=== PATIENT | male | born 1940 | race Caucasian/White ===

== ENCOUNTER 2018-06-08 22:55 | Inpatient (IN) | payer MEDICARE, MEDICAID ==
[~2018-06-08] VITALS: Ht 160 cm; Wt 115.9 kg
[2018-06-08] MEDS ORDERED: acetaminophen 325mg tablet PO ONE (23:10)
[2018-06-08] MEDS ORDERED: MAGN400T6 PO (23:22)
[2018-06-08] MEDS ORDERED: AMLO2.5T2 PO (23:22)
[2018-06-08] MEDS ORDERED: LOSA25TA96 PO (23:22)
[2018-06-08] MEDS ORDERED: ERGO400C (23:22)
[2018-06-08] MEDS ORDERED: LANTUS SQ (23:22)
[2018-06-08] MEDS ORDERED: ATOR10TA87 PO (23:22)
[2018-06-08 23:39] LABS: HEMATOCRIT 39.8 % (42.0-52.0); HEMOGLOBIN 13.5 g/dl (14.0-17.9); MEAN CORPUSCULAR HEMOGLOBIN 31.1 PG (27.0-31.0); MEAN CORPUSCULAR HGB CONC 33.9 % (33.0-36.5); MEAN CORPUSCULAR VOLUME 91.7 FL (78-98); RED BLOOD COUNT 4.34 X10'6 (4.70-6.10); WHITE BLOOD COUNT 22.5 X10'3 (4.5-11.0)
[2018-06-08 23:40] LABS: BASOPHILS # (AUTO) 0.3 X10'3 (0-0.2); BASOPHILS % (AUTO) 1.4 % (0-1); EOSINOPHILS % (AUTO) 0 % (0-6); LYMPHOCYTES # (AUTO) 0.5 X10'3 (1.1-4.8); LYMPHOCYTES % (AUTO) 2.4 % (21-51); MEAN PLATELET VOLUME 9.4 FL (7.4-10.4); MONOCYTES # (AUTO) 0.5 X10'3 (0-0.9); MONOCYTES % (AUTO) 2.2 % (2-12); NEUTROPHILS # (AUTO) 21.2 X10'3 (1.8-7.7); PLATELET COUNT 201 X10'3 (140-440); RED CELL DISTRIBUTION WIDTH 13.7 % (11.5-14.5)
[2018-06-08 23:44] LABS: INR 1.2 INR; PARTIAL THROMBOPLASTIN TIME 36 SECONDS (22-32); PROTHROMBIN TIME 11.9 SECONDS (9.0-12.0)
[2018-06-08 23:49] LABS: ALANINE AMINOTRANSFERASE 32 U/L (12-78); ALBUMIN 3.3 G/DL (3.4-5.0); ALBUMIN/GLOBULIN RATIO 0.8 (1.1-1.5); ALKALINE PHOSPHATASE 57 IU/L (46-116); ANION GAP 13 (8-16); ASPARTATE AMINO TRANSFERASE 23 U/L (10-37); BILIRUBIN,TOTAL 1.6 MG/DL (0.1-1.0); BLOOD UREA NITROGEN 36 MG/DL (7-18); BUN/CREATININE RATIO 15.2 (5.4-32.0); CALCIUM 8.4 MG/DL (8.5-10.1); CHLORIDE 102 MMOL/L (99-107); CREATININE 2.37 MG/DL (0.60-1.10); GLUCOSE 121 MG/DL (70-104); POTASSIUM 5.1 MMOL/L (3.5-5.1); SODIUM 138 MMOL/L (135-145); TOTAL CARBON DIOXIDE 22.8 MMOL/L (24-32); TOTAL PROTEIN 7.5 G/DL (6.4-8.2); eGFR 27 ML/MIN
[2018-06-08 23:52] LABS: CLARITY,URINE CLEAR (Clear); COLOR,URINE YELLOW (Yellow); GLUCOSE, URINE NEGATIVE (Neg); KETONES,URINE NEGATIVE (Neg); LEUKOCYTE ESTERASE ,URINE NEGATIVE (Neg); NITRITES, URINE NEGATIVE (Neg); OCCULT BLOOD,URINE MODERATE (Neg); PROTEIN,URINE 30 mg/dl (Neg); UROBILINOGEN,URINE 0.2 E.U/dL (0.2-1.0)
[2018-06-09] VITALS (10 sets, daily range): BP systolic 78–128; BP diastolic 14–63
[2018-06-09] LABS: UA COLLECTION TYPE CLN CATCH MIDSTREAM
[2018-06-09 00:03] LABS: BACTERIA,URINE NONE SEEN /HPF (Neg); MUCUS STRANDS NONE SEEN /LPF (Neg); SQUAMOUS EPITHELIAL CELL,UR NONE SEEN /LPF (FEW); WBC,URINE NONE SEEN /HPF (0-4)
[2018-06-09] MEDS ORDERED: fluconazole 150mg tablet PO ONE (00:10)
[2018-06-09] MEDS: nystatin 15 GM powder TP SCH ×4 (00:23→21:00)
[2018-06-09] MEDS ORDERED: clindamycin 600mg/D5W 50ml 50 ML IV ONE (00:25)
[2018-06-09] MEDS ORDERED: normal saline 1000ML IV soln IVB ONE (00:25)
[2018-06-09] MEDS ORDERED: morphine 4 MG/ML inj SYRINge IV ONE (00:40)
[2018-06-09] MEDS ORDERED: ondansetron/PF 4mg/2ml inj IV ONE (00:40)
[2018-06-09] MEDS ORDERED: mag hydrox/Alum hydrox/simeth 30ml oral suspension PO PRN (01:50)
[2018-06-09] MEDS ORDERED: ondansetron/PF 4mg/2ml inj IV PRN (01:50)
[2018-06-09] MEDS ORDERED: magnesium hydroxide 30ml (MOM) UD suspension PO PRN (01:50)
[2018-06-09] MEDS ORDERED: morphine 2 MG/ML inj. syringe IV PRN ×2 (01:50)
[2018-06-09] MEDS ORDERED: dextrose ORAL solution 15 GM/59 ML bottle PO PRN ×2 (02:00)
[2018-06-09] MEDS ORDERED: MESSAGE TO PHARMACY PO ONE (02:00)
[2018-06-09] MEDS ORDERED: glucagon, human recombinant 1mg kit SUBCUT PRN (02:00)
[2018-06-09] MEDS ORDERED: insulin Lispro (HumaLOG) vial - multi-dose SQ SCH (02:00)
[2018-06-09] MEDS ORDERED: dextrose 50%-water 50ml dispensing syringe IV PRN ×2 (02:00)
[2018-06-09] MEDS: normal saline 1000ml 1,000 ML IV SCH ×2 (03:23→13:50)
[2018-06-09] MEDS ORDERED: ROSU10TA27 (04:14)
[2018-06-09] MEDS ORDERED: LOSA100T15 PO (04:14)
[2018-06-09] MEDS ORDERED: GLIP5TAB13 PO (04:14)
[2018-06-09] MEDS ORDERED: AMLO5TAB16 PO (04:14)
[2018-06-09] MEDS ORDERED: CHOL400T PO (04:14)
[2018-06-09] MEDS ORDERED: ASPI-1265 PO (05:43)
[2018-06-09] MEDS: clindamycin 600mg/D5W 50ml 50 ML IV SCH ×2 (06:24→11:13)
[2018-06-09] MEDS: cefepime 2g/NS 100ml ADVANTAGE 100 ML IV SCH ×2 (07:30→20:17)
[2018-06-09] MEDS: heparin, porcine 5000 units/ml vial SQ SCH ×2 (07:30→20:20)
[2018-06-09] MEDS: acetaminophen 325mg tablet PO PRN ×2 (07:32→14:01)
[2018-06-09] MEDS ORDERED: ibuprofen 200mg tablet PO PRN (10:55)
[2018-06-09] MEDS: fluconazole-Diflucan 200mg/NS 100 ML IV SCH (12:31)
[2018-06-09] MEDS ORDERED: furosemide 10 MG/1 ML 10ml inj IV ONE (15:10)
[2018-06-09] MEDS ORDERED: albuterol 2.5 MG/3 ML nebule NEB ONE (15:55)
[2018-06-09 16:11] LABS: ABG BASE EXCESS -7.9 mmol/L (-2.0-3.0); ABG OXYGEN SATURATION 97.7 % (95-98); ABG PH (T) 7.412 (7.350-7.450); ABG PO2 (T) 114.8 mmHg (83-108); ALLEN'S TEST Positive; FCOHb 0.3 % (0.5-1.5); FLOW 2 L/min; FMetHb 0.2 % (0.3-1.12); FO2Hb 97.2 % (94-100); PATIENT TEMPERATURE 39.2; TOTAL HEMOGLOBIN 12.9 G/dl (14.0-18.0)
[2018-06-09] MEDS ORDERED: LIDOcaine 2% 10ml TOPICAL JELLY (Urojet) MM ONE (16:20)
[2018-06-09 16:42] LABS: BASOPHILS % (AUTO) 0.2 % (0-1); EOSINOPHILS % (AUTO) 0 % (0-6); HEMATOCRIT 35.2 % (42.0-52.0); HEMOGLOBIN 11.8 g/dl (14.0-17.9); LYMPHOCYTES # (AUTO) 0.6 X10'3 (1.1-4.8); LYMPHOCYTES % (AUTO) 3.6 % (21-51); MEAN CORPUSCULAR HEMOGLOBIN 30.9 PG (27.0-31.0); MEAN CORPUSCULAR HGB CONC 33.6 % (33.0-36.5); MEAN CORPUSCULAR VOLUME 91.8 FL (78-98); MEAN PLATELET VOLUME 9.6 FL (7.4-10.4); MONOCYTES # (AUTO) 0.4 X10'3 (0-0.9); MONOCYTES % (AUTO) 2.9 % (2-12); NEUTROPHILS # (AUTO) 14.3 X10'3 (1.8-7.7); NEUTROPHILS % (AUTO) 93.3 % (42-75); PLATELET COUNT 159 X10'3 (140-440); RED BLOOD COUNT 3.84 X10'6 (4.70-6.10); RED CELL DISTRIBUTION WIDTH 14.4 % (11.5-14.5); WHITE BLOOD COUNT 15.3 X10'3 (4.5-11.0)
[2018-06-09 17:01] LABS: ALANINE AMINOTRANSFERASE 41 U/L (12-78); ALBUMIN 2.5 G/DL (3.4-5.0); ALBUMIN/GLOBULIN RATIO 0.7 (1.1-1.5); ALKALINE PHOSPHATASE 44 IU/L (46-116); ANION GAP 14 (8-16); ASPARTATE AMINO TRANSFERASE 41 U/L (10-37); BILIRUBIN,TOTAL 1.2 MG/DL (0.1-1.0); BLOOD UREA NITROGEN 38 MG/DL (7-18); BUN/CREATININE RATIO 15.4 (5.4-32.0); CALCIUM 7.8 MG/DL (8.5-10.1); CHLORIDE 104 MMOL/L (99-107); CREATININE 2.47 MG/DL (0.60-1.10); GLUCOSE 157 MG/DL (70-104); POTASSIUM 4.2 MMOL/L (3.5-5.1); SODIUM 135 MMOL/L (135-145); TOTAL PROTEIN 6.2 G/DL (6.4-8.2); eGFR 26 ML/MIN
[2018-06-09] MEDS ORDERED: albuterol 2.5 MG/3 ML nebule NEB PRN (19:35)
[2018-06-09] MEDS: furosemide 40mg/4ml inj IV SCH (20:00)
[2018-06-09] MEDS: lactobacillus rhamnosus 10,000 MMU CELLS/CAPSULE PO SCH (20:27)
[2018-06-09] MEDS: insulin glargine (Lantus) pen - multi-dose SQ SCH (21:00)
[2018-06-09 21:04] LABS: ALANINE AMINOTRANSFERASE 41 U/L (12-78); ALBUMIN 2.3 G/DL (3.4-5.0); ALBUMIN/GLOBULIN RATIO 0.7 (1.1-1.5); ALKALINE PHOSPHATASE 43 IU/L (46-116); ANION GAP 14 (8-16); ASPARTATE AMINO TRANSFERASE 47 U/L (10-37); BILIRUBIN,TOTAL 1.2 MG/DL (0.1-1.0); BLOOD UREA NITROGEN 46 MG/DL (7-18); BUN/CREATININE RATIO 16.3 (5.4-32.0); CALCIUM 7.8 MG/DL (8.5-10.1); CHLORIDE 104 MMOL/L (99-107); CREATININE 2.83 MG/DL (0.60-1.10); GLUCOSE 153 MG/DL (70-104); POTASSIUM 3.9 MMOL/L (3.5-5.1); SODIUM 136 MMOL/L (135-145); TOTAL CARBON DIOXIDE 17.6 MMOL/L (24-32); TOTAL PROTEIN 5.8 G/DL (6.4-8.2); eGFR 22 ML/MIN
[2018-06-10 02:00] VITALS: BP 91/49
[2018-06-10 05:50] LABS: ALANINE AMINOTRANSFERASE 49 U/L (12-78); ALBUMIN 2.1 G/DL (3.4-5.0); ALBUMIN/GLOBULIN RATIO 0.6 (1.1-1.5); ALKALINE PHOSPHATASE 42 IU/L (46-116); ANION GAP 14 (8-16); ASPARTATE AMINO TRANSFERASE 52 U/L (10-37); BILIRUBIN,TOTAL 1.1 MG/DL (0.1-1.0); BLOOD UREA NITROGEN 52 MG/DL (7-18); BUN/CREATININE RATIO 16.6 (5.4-32.0); CALCIUM 7.8 MG/DL (8.5-10.1); CHLORIDE 105 MMOL/L (99-107); CREATININE 3.13 MG/DL (0.60-1.10); GLUCOSE 122 MG/DL (70-104); POTASSIUM 3.9 MMOL/L (3.5-5.1); SODIUM 138 MMOL/L (135-145); TOTAL CARBON DIOXIDE 18.6 MMOL/L (24-32); TOTAL PROTEIN 5.5 G/DL (6.4-8.2); eGFR 19 ML/MIN
[2018-06-10 06:00] VITALS: BP 149/74
[2018-06-10 07:14] LABS: HEMATOCRIT 31.4 % (42.0-52.0); HEMOGLOBIN 11.1 g/dl (14.0-17.9); MEAN CORPUSCULAR HEMOGLOBIN 32.4 PG (27.0-31.0); MEAN CORPUSCULAR HGB CONC 35.5 % (33.0-36.5); MEAN CORPUSCULAR VOLUME 91.4 FL (78-98); PLATELET COUNT 125 X10'3 (140-440); RED BLOOD COUNT 3.41 X10'6 (4.70-6.10); RED CELL DISTRIBUTION WIDTH 14.2 % (11.5-14.5); WHITE BLOOD COUNT 8.3 X10'3 (4.5-11.0)
[2018-06-10 07:15] LABS: BASOPHILS % (AUTO) 0 % (0-1); EOSINOPHILS % (AUTO) 0.2 % (0-6); LYMPHOCYTES # (AUTO) 0.5 X10'3 (1.1-4.8); LYMPHOCYTES % (AUTO) 6.2 % (21-51); MEAN PLATELET VOLUME 9.5 FL (7.4-10.4); MONOCYTES # (AUTO) 0.3 X10'3 (0-0.9); MONOCYTES % (AUTO) 3.7 % (2-12); NEUTROPHILS # (AUTO) 7.5 X10'3 (1.8-7.7); NEUTROPHILS % (AUTO) 89.9 % (42-75)
[2018-06-10] MEDS: fluconazole-Diflucan 200mg/NS 100 ML IV SCH (07:18)
[2018-06-10] MEDS: heparin, porcine 5000 units/ml vial SQ SCH ×2 (07:23→22:10)
[2018-06-10] MEDS: lactobacillus rhamnosus 10,000 MMU CELLS/CAPSULE PO SCH ×2 (07:23→22:00)
[2018-06-10] MEDS: furosemide 40mg/4ml inj IV SCH (07:24)
[2018-06-10] MEDS: nystatin 15 GM powder TP SCH ×3 (07:29→21:00)
[2018-06-10] MEDS: silver sulfadiazine cream 50gm TP SCH (08:00)
[2018-06-10] MEDS: cefepime 2g/NS 100ml ADVANTAGE 100 ML IV SCH ×2 (09:21→21:51)
[2018-06-10 10:00] VITALS: BP 93/54
[2018-06-10] MEDS: normal saline 1000ml 1,000 ML IV SCH ×3 (10:00→17:22)
[2018-06-10 14:09] VITALS: BP 110/65
[2018-06-10 14:44] LABS: OCCULT BLOOD STOOL POSITIVE (Neg)
[2018-06-10 18:00] VITALS: BP 137/78
[2018-06-10] MEDS: insulin glargine (Lantus) pen - multi-dose SQ SCH ×2 (21:00→22:09)
[2018-06-10] MEDS: pantoprazole 40 MG vial IV SCH (21:53)
[2018-06-10 22:00] VITALS: BP 106/62
[2018-06-10] MEDS: magnesium oxide 400mg tablet PO SCH (22:00)
[2018-06-11] MEDS: normal saline 1000ml 1,000 ML IV SCH ×2 (04:59→18:39)
[2018-06-11 06:00] VITALS: BP 109/53
[2018-06-11 07:28] LABS: BASOPHILS % (AUTO) 0 % (0-1); EOSINOPHILS # (AUTO) 0.1 X10'3 (0-0.9); EOSINOPHILS % (AUTO) 1.7 % (0-6); HEMOGLOBIN 11.4 g/dl (14.0-17.9); LYMPHOCYTES # (AUTO) 0.9 X10'3 (1.1-4.8); LYMPHOCYTES % (AUTO) 13.2 % (21-51); MEAN CORPUSCULAR HEMOGLOBIN 32.4 PG (27.0-31.0); MEAN CORPUSCULAR HGB CONC 35.5 % (33.0-36.5); MEAN PLATELET VOLUME 9.6 FL (7.4-10.4); MONOCYTES # (AUTO) 0.4 X10'3 (0-0.9); MONOCYTES % (AUTO) 5.7 % (2-12); NEUTROPHILS # (AUTO) 5.7 X10'3 (1.8-7.7); NEUTROPHILS % (AUTO) 79.4 % (42-75); PLATELET COUNT 139 X10'3 (140-440); RED BLOOD COUNT 3.51 X10'6 (4.70-6.10); RED CELL DISTRIBUTION WIDTH 13.9 % (11.5-14.5); WHITE BLOOD COUNT 7.1 X10'3 (4.5-11.0)
[2018-06-11 07:41] LABS: ALANINE AMINOTRANSFERASE 56 U/L (12-78); ALBUMIN 2.2 G/DL (3.4-5.0); ALBUMIN/GLOBULIN RATIO 0.6 (1.1-1.5); ALKALINE PHOSPHATASE 84 IU/L (46-116); ANION GAP 13 (8-16); ASPARTATE AMINO TRANSFERASE 53 U/L (10-37); BILIRUBIN,TOTAL 0.9 MG/DL (0.1-1.0); BLOOD UREA NITROGEN 51 MG/DL (7-18); BUN/CREATININE RATIO 17.2 (5.4-32.0); CALCIUM 8.5 MG/DL (8.5-10.1); CHLORIDE 108 MMOL/L (99-107); CREATININE 2.96 MG/DL (0.60-1.10); GLUCOSE 109 MG/DL (70-104); POTASSIUM 4.1 MMOL/L (3.5-5.1); SODIUM 140 MMOL/L (135-145); TOTAL CARBON DIOXIDE 19.3 MMOL/L (24-32); eGFR 21 ML/MIN
[2018-06-11] MEDS ORDERED: non-formulary drug (Losartan Potassium 1 TAB) PO SCH (08:00)
[2018-06-11] MEDS: losartan 50mg tablet PO SCH (08:00)
[2018-06-11] MEDS: amLODIPine 5mg tablet PO SCH (08:00)
[2018-06-11] MEDS: pantoprazole 40 MG vial IV SCH ×2 (08:19→19:39)
[2018-06-11] MEDS: atorvastatin 10mg tablet PO SCH (08:19)
[2018-06-11] MEDS: magnesium oxide 400mg tablet PO SCH ×2 (08:19→19:39)
[2018-06-11] MEDS: lactobacillus rhamnosus 10,000 MMU CELLS/CAPSULE PO SCH ×2 (08:19→19:39)
[2018-06-11] MEDS: heparin, porcine 5000 units/ml vial SQ SCH ×2 (08:19→19:40)
[2018-06-11] MEDS: aspirin 81mg tab.chew PO SCH (08:19)
[2018-06-11] MEDS: nystatin 15 GM powder TP SCH ×3 (08:20→19:40)
[2018-06-11] MEDS: silver sulfadiazine cream 50gm TP SCH (08:20)
[2018-06-11] MEDS: cefepime 2g/NS 100ml ADVANTAGE 100 ML IV SCH ×2 (08:20→19:42)
[2018-06-11] MEDS: fluconazole-Diflucan 200mg/NS 100 ML IV SCH (09:33)
[2018-06-11 10:00] VITALS: BP 102/58
[2018-06-11 18:00] VITALS: BP 122/65
[2018-06-11] MEDS: insulin glargine (Lantus) pen - multi-dose SQ SCH ×2 (21:00→22:11)
[2018-06-11 22:00] VITALS: BP 138/64
[2018-06-12] MEDS: normal saline 1000ml 1,000 ML IV SCH (02:01)
[2018-06-12 06:00] VITALS: BP 114/61
[2018-06-12] MEDS: pantoprazole 40 MG vial IV SCH ×2 (07:19→19:26)
[2018-06-12] MEDS: cefepime 2g/NS 100ml ADVANTAGE 100 ML IV SCH ×2 (07:19→19:26)
[2018-06-12] MEDS: heparin, porcine 5000 units/ml vial SQ SCH ×2 (07:20→19:26)
[2018-06-12] MEDS: nystatin 15 GM powder TP SCH ×3 (07:20→20:46)
[2018-06-12] MEDS: silver sulfadiazine cream 50gm TP SCH (07:20)
[2018-06-12] MEDS: amLODIPine 5mg tablet PO SCH (07:20)
[2018-06-12] MEDS: atorvastatin 10mg tablet PO SCH (07:20)
[2018-06-12] MEDS: lactobacillus rhamnosus 10,000 MMU CELLS/CAPSULE PO SCH ×2 (07:20→19:26)
[2018-06-12] MEDS: aspirin 81mg tab.chew PO SCH (07:20)
[2018-06-12] MEDS: magnesium oxide 400mg tablet PO SCH ×2 (07:20→19:26)
[2018-06-12] MEDS: losartan 50mg tablet PO SCH (08:00)
[2018-06-12 08:16] LABS: BASOPHILS % (AUTO) 0.1 % (0-1); EOSINOPHILS # (AUTO) 0.2 X10'3 (0-0.9); EOSINOPHILS % (AUTO) 1.4 % (0-6); HEMOGLOBIN 10.9 g/dl (14.0-17.9); LYMPHOCYTES # (AUTO) 1.3 X10'3 (1.1-4.8); LYMPHOCYTES % (AUTO) 11.2 % (21-51); MEAN CORPUSCULAR HEMOGLOBIN 31.9 PG (27.0-31.0); MEAN CORPUSCULAR HGB CONC 35.3 % (33.0-36.5); MEAN CORPUSCULAR VOLUME 90.5 FL (78-98); MEAN PLATELET VOLUME 9.6 FL (7.4-10.4); MONOCYTES # (AUTO) 0.7 X10'3 (0-0.9); MONOCYTES % (AUTO) 6.4 % (2-12); NEUTROPHILS # (AUTO) 9.2 X10'3 (1.8-7.7); NEUTROPHILS % (AUTO) 80.9 % (42-75); PLATELET COUNT 137 X10'3 (140-440); RED BLOOD COUNT 3.43 X10'6 (4.70-6.10); RED CELL DISTRIBUTION WIDTH 14.1 % (11.5-14.5); WHITE BLOOD COUNT 11.4 X10'3 (4.5-11.0)
[2018-06-12 08:33] LABS: ALANINE AMINOTRANSFERASE 87 U/L (12-78); ALBUMIN 2.3 G/DL (3.4-5.0); ALBUMIN/GLOBULIN RATIO 0.6 (1.1-1.5); ALKALINE PHOSPHATASE 124 IU/L (46-116); ANION GAP 15 (8-16); ASPARTATE AMINO TRANSFERASE 87 U/L (10-37); BLOOD UREA NITROGEN 42 MG/DL (7-18); BUN/CREATININE RATIO 15.6 (5.4-32.0); CALCIUM 8.2 MG/DL (8.5-10.1); CHLORIDE 107 MMOL/L (99-107); GLUCOSE 131 MG/DL (70-104); POTASSIUM 4.1 MMOL/L (3.5-5.1); SODIUM 141 MMOL/L (135-145); TOTAL CARBON DIOXIDE 18.8 MMOL/L (24-32); TOTAL PROTEIN 6.2 G/DL (6.4-8.2); eGFR 23 ML/MIN
[2018-06-12] MEDS: fluconazole-Diflucan 200mg/NS 100 ML IV SCH (09:09)
[2018-06-12 10:00] VITALS: BP 113/68
[2018-06-12] MEDS ORDERED: VANCOMYCIN LEVEL IV ONE (11:30)
[2018-06-12 18:00] VITALS: BP 124/70
[2018-06-12] MEDS: insulin glargine (Lantus) pen - multi-dose SQ SCH ×2 (20:47)
[2018-06-12] MEDS ORDERED: HYDROcodone/acetaminophen 5mg/325mg tablet PO PRN (21:55)
[2018-06-12 22:00] VITALS: BP 128/70
[2018-06-13 06:00] VITALS: BP 114/64
[2018-06-13] MEDS: silver sulfadiazine cream 50gm TP SCH (08:00)
[2018-06-13] MEDS: aspirin 81mg tab.chew PO SCH (08:04)
[2018-06-13] MEDS: pantoprazole 40 MG vial IV SCH ×2 (08:04→20:58)
[2018-06-13] MEDS: amLODIPine 5mg tablet PO SCH (08:05)
[2018-06-13] MEDS: magnesium oxide 400mg tablet PO SCH ×2 (08:05→20:45)
[2018-06-13] MEDS: atorvastatin 10mg tablet PO SCH (08:05)
[2018-06-13] MEDS: heparin, porcine 5000 units/ml vial SQ SCH (08:05)
[2018-06-13] MEDS: losartan 50mg tablet PO SCH (08:05)
[2018-06-13] MEDS: cefepime 2g/NS 100ml ADVANTAGE 100 ML IV SCH ×2 (08:05→20:59)
[2018-06-13] MEDS: lactobacillus rhamnosus 10,000 MMU CELLS/CAPSULE PO SCH ×2 (08:05→20:45)
[2018-06-13] MEDS: nystatin 15 GM powder TP SCH ×3 (08:14→21:11)
[2018-06-13 08:27] LABS: BASOPHILS # (AUTO) 0.1 X10'3 (0-0.2); BASOPHILS % (AUTO) 0.4 % (0-1); EOSINOPHILS # (AUTO) 0.3 X10'3 (0-0.9); EOSINOPHILS % (AUTO) 2.2 % (0-6); HEMATOCRIT 29.3 % (42.0-52.0); HEMOGLOBIN 10.3 g/dl (14.0-17.9); LYMPHOCYTES # (AUTO) 1.9 X10'3 (1.1-4.8); LYMPHOCYTES % (AUTO) 13.3 % (21-51); MEAN CORPUSCULAR HEMOGLOBIN 31.8 PG (27.0-31.0); MEAN CORPUSCULAR HGB CONC 35.2 % (33.0-36.5); MEAN CORPUSCULAR VOLUME 90.4 FL (78-98); MEAN PLATELET VOLUME 9.9 FL (7.4-10.4); MONOCYTES # (AUTO) 1.1 X10'3 (0-0.9); NEUTROPHILS # (AUTO) 10.6 X10'3 (1.8-7.7); NEUTROPHILS % (AUTO) 76.1 % (42-75); PLATELET COUNT 154 X10'3 (140-440); RED BLOOD COUNT 3.24 X10'6 (4.70-6.10); RED CELL DISTRIBUTION WIDTH 14.1 % (11.5-14.5); WHITE BLOOD COUNT 13.9 X10'3 (4.5-11.0)
[2018-06-13 08:53] LABS: ALANINE AMINOTRANSFERASE 77 U/L (12-78); ALBUMIN 2.3 G/DL (3.4-5.0); ALBUMIN/GLOBULIN RATIO 0.6 (1.1-1.5); ALKALINE PHOSPHATASE 163 IU/L (46-116); ANION GAP 12 (8-16); ASPARTATE AMINO TRANSFERASE 55 U/L (10-37); BLOOD UREA NITROGEN 38 MG/DL (7-18); BUN/CREATININE RATIO 15.4 (5.4-32.0); CALCIUM 8.7 MG/DL (8.5-10.1); CHLORIDE 108 MMOL/L (99-107); CREATININE 2.47 MG/DL (0.60-1.10); GLUCOSE 116 MG/DL (70-104); POTASSIUM 3.9 MMOL/L (3.5-5.1); SODIUM 142 MMOL/L (135-145); TOTAL CARBON DIOXIDE 22.3 MMOL/L (24-32); TOTAL PROTEIN 6.2 G/DL (6.4-8.2); eGFR 26 ML/MIN
[2018-06-13] MEDS: fluconazole-Diflucan 200mg/NS 100 ML IV SCH (09:27)
[2018-06-13 10:00] VITALS: BP 128/71
[2018-06-13 18:00] VITALS: BP 136/64
[2018-06-13] MEDS: insulin glargine (Lantus) pen - multi-dose SQ SCH ×2 (20:57→21:00)
[2018-06-13 22:00] VITALS: BP 138/69
[2018-06-14] VITALS (7 sets, daily range): BP systolic 106–139; BP diastolic 60–75
[2018-06-14 05:25] LABS: ALANINE AMINOTRANSFERASE 68 U/L (12-78); ALBUMIN 2.4 G/DL (3.4-5.0); ALBUMIN/GLOBULIN RATIO 0.6 (1.1-1.5); ALKALINE PHOSPHATASE 141 IU/L (46-116); ANION GAP 11 (8-16); ASPARTATE AMINO TRANSFERASE 45 U/L (10-37); BILIRUBIN,TOTAL 1.2 MG/DL (0.1-1.0); BLOOD UREA NITROGEN 35 MG/DL (7-18); CALCIUM 9.2 MG/DL (8.5-10.1); CHLORIDE 107 MMOL/L (99-107); CREATININE 2.34 MG/DL (0.60-1.10); GLUCOSE 143 MG/DL (70-104); POTASSIUM 3.9 MMOL/L (3.5-5.1); SODIUM 140 MMOL/L (135-145); TOTAL CARBON DIOXIDE 22.3 MMOL/L (24-32); TOTAL PROTEIN 6.6 G/DL (6.4-8.2); eGFR 27 ML/MIN
[2018-06-14 05:34] LABS: BASOPHILS % (AUTO) 0 % (0-1); EOSINOPHILS # (AUTO) 0.4 X10'3 (0-0.9); HEMATOCRIT 31.6 % (42.0-52.0); HEMOGLOBIN 11.1 g/dl (14.0-17.9); LYMPHOCYTES # (AUTO) 1.7 X10'3 (1.1-4.8); LYMPHOCYTES % (AUTO) 12.7 % (21-51); MEAN CORPUSCULAR HEMOGLOBIN 32.1 PG (27.0-31.0); MEAN CORPUSCULAR HGB CONC 35.1 % (33.0-36.5); MEAN CORPUSCULAR VOLUME 91.4 FL (78-98); MEAN PLATELET VOLUME 9.7 FL (7.4-10.4); MONOCYTES # (AUTO) 1.2 X10'3 (0-0.9); MONOCYTES % (AUTO) 9.1 % (2-12); NEUTROPHILS # (AUTO) 10.1 X10'3 (1.8-7.7); NEUTROPHILS % (AUTO) 75.2 % (42-75); PLATELET COUNT 203 X10'3 (140-440); RED BLOOD COUNT 3.45 X10'6 (4.70-6.10); RED CELL DISTRIBUTION WIDTH 14.1 % (11.5-14.5); WHITE BLOOD COUNT 13.4 X10'3 (4.5-11.0)
[2018-06-14] MEDS: lactobacillus rhamnosus 10,000 MMU CELLS/CAPSULE PO SCH (08:00)
[2018-06-14] MEDS: magnesium oxide 400mg tablet PO SCH (08:00)
[2018-06-14] MEDS: pantoprazole 40 MG vial IV SCH (08:07)
[2018-06-14] MEDS: amLODIPine 5mg tablet PO SCH (08:07)
[2018-06-14] MEDS: cefepime 2g/NS 100ml ADVANTAGE 100 ML IV SCH (08:07)
[2018-06-14] MEDS: atorvastatin 10mg tablet PO SCH (08:07)
[2018-06-14] MEDS: losartan 50mg tablet PO SCH (08:07)
[2018-06-14] MEDS: silver sulfadiazine cream 50gm TP SCH (08:26)
[2018-06-14] MEDS: nystatin 15 GM powder TP SCH ×2 (08:33→14:27)
[2018-06-14] MEDS: fluconazole-Diflucan 200mg/NS 100 ML IV SCH (08:54)
[2018-06-14] MEDS ORDERED: MIDAZolam 5mg/5ml vial ONE (12:05)
[2018-06-14] MEDS ORDERED: fentaNYL/PF 50MCG/1 ML 2ML syringe ONE (12:05)
[2018-06-14] MEDS ORDERED: LIDOcaine Viscous 15ml cup ONE (12:05)
== END 2018-06-14 16:30 | DRG 871 ==
LOC: ER 22:55 → ED HOLD 06-09 01:50 → ORTHO 4S 06-09 03:00
PROVIDERS: ADMIT Internal Medicine; ATTEND Internal Medicine
PROC: 0DB68ZX Excision of Stomach, Via Natural or Artificial Opening Endoscopic, Diagnostic (ICD-10-PCS; principal; 2018-06-14)
DX: A41.9 Sepsis, unspecified organism (principal); G93.41 Metabolic encephalopathy; K29.71 Gastritis, unspecified, with bleeding; L03.116 Cellulitis of left lower limb; L03.115 Cellulitis of right lower limb; Z68.42 Body mass index [BMI] 45.0-49.9, adult; L97.909 Non-pressure chronic ulcer of unspecified part of unspecified lower leg with unspecified severity; B37.2 Candidiasis of skin and nail; E11.22 Type 2 diabetes mellitus with diabetic chronic kidney disease; I25.10 Atherosclerotic heart disease of native coronary artery without angina pectoris; E11.622 Type 2 diabetes mellitus with other skin ulcer; D50.9 Iron deficiency anemia, unspecified; G89.4 Chronic pain syndrome; E11.65 Type 2 diabetes mellitus with hyperglycemia; E66.01 Morbid (severe) obesity due to excess calories; I48.0 Paroxysmal atrial fibrillation; I12.9 Hypertensive chronic kidney disease with stage 1 through stage 4 chronic kidney disease, or unspecified chronic kidney disease; I87.8 Other specified disorders of veins; K20.9 Esophagitis, unspecified; N18.3 Chronic kidney disease, stage 3 (moderate); Z79.4 Long term (current) use of insulin; Z79.899 Other long term (current) drug therapy; Z86.73 Personal history of transient ischemic attack (TIA), and cerebral infarction without residual deficits
CPT/HCPCS: 36415; 36600; 43239; 70450; 71045; 73200; 80053; 80202; 81001; 81003; 82272; 82803; 82948; 83036; 83605; 84145; 85018; 85025; 85610; 85651; 85730; 86140; 87040; 87070; 88305; 88342; 93005; 93306; 93925; 93970; 94640; 94760; 96365; 96375; 97110; 97116; 97161; 97530; 99152; 99285; A4620; A6224; A6253; C9113; J0692; J1450; J1644; J1815; J1940; J2250; J2270; J2405; J3010; J3370; J3490; J7030

== ENCOUNTER 2018-06-25 14:26 | Inpatient (IN) | payer MEDICARE, MEDICAID ==
[~2018-06-25] VITALS: Ht 182.9 cm; Wt 107.0 kg
[~2018-06-25 14:26] MED LIST: AMLO5TAB16 PO; ASPI-1265 PO; ATOR10TA87 PO; ERGO400C PO; GLIP5TAB13 PO; LANTUS SQ; LOSA100T15 PO; MAGN400T6 PO
[2018-06-25 15:20] LABS: BASOPHILS % (AUTO) 0.5 % (0-1); EOSINOPHILS # (AUTO) 0.2 X10'3 (0-0.9); EOSINOPHILS % (AUTO) 2.5 % (0-6); HEMATOCRIT 27.5 % (42.0-52.0); LYMPHOCYTES # (AUTO) 1.5 X10'3 (1.1-4.8); LYMPHOCYTES % (AUTO) 16.7 % (21-51); MEAN CORPUSCULAR HEMOGLOBIN 30.1 PG (27.0-31.0); MEAN CORPUSCULAR HGB CONC 32.7 % (33.0-36.5); MEAN CORPUSCULAR VOLUME 92.2 FL (78-98); MONOCYTES # (AUTO) 0.7 X10'3 (0-0.9); NEUTROPHILS # (AUTO) 6.4 X10'3 (1.8-7.7); NEUTROPHILS % (AUTO) 72.3 % (42-75); PLATELET COUNT 488 X10'3 (140-440); RED BLOOD COUNT 2.98 X10'6 (4.70-6.10); RED CELL DISTRIBUTION WIDTH 14.9 % (11.5-14.5); WHITE BLOOD COUNT 8.9 X10'3 (4.5-11.0)
[2018-06-25 15:32] LABS: INR 1.1 INR; PARTIAL THROMBOPLASTIN TIME 28 SECONDS (22-32); PROTHROMBIN TIME 11.4 SECONDS (9.0-12.0)
[2018-06-25 15:34] LABS: ALANINE AMINOTRANSFERASE 49 U/L (12-78); ALBUMIN 1.8 G/DL (3.4-5.0); ALBUMIN/GLOBULIN RATIO 0.3 (1.1-1.5); ALKALINE PHOSPHATASE 125 IU/L (46-116); ANION GAP 7 (8-16); ASPARTATE AMINO TRANSFERASE 37 U/L (10-37); BILIRUBIN,TOTAL 0.9 MG/DL (0.1-1.0); BLOOD UREA NITROGEN 61 MG/DL (7-18); BUN/CREATININE RATIO 11.4 (5.4-32.0); CALCIUM 8.6 MG/DL (8.5-10.1); CHLORIDE 98 MMOL/L (99-107); CREATININE 5.34 MG/DL (0.60-1.10); GLUCOSE 145 MG/DL (70-104); LACTIC SEPSIS 1.2 MMOL/L (0.4-2.0); POTASSIUM 4.7 MMOL/L (3.5-5.1); SODIUM 136 MMOL/L (135-145); TOTAL CARBON DIOXIDE 30.7 MMOL/L (24-32); TOTAL PROTEIN 7.9 G/DL (6.4-8.2); eGFR 10 ML/MIN
[2018-06-25 15:37] LABS: TROPONIN I < 0.04 NG/ML (0.0-0.05)
[2018-06-25 15:57] LABS: CLARITY,URINE CLEAR (Clear); COLOR,URINE YELLOW (Yellow); GLUCOSE, URINE NEGATIVE (Neg); KETONES,URINE NEGATIVE (Neg); LEUKOCYTE ESTERASE ,URINE NEGATIVE (Neg); NITRITES, URINE NEGATIVE (Neg); OCCULT BLOOD,URINE MODERATE (Neg); PROTEIN,URINE 30 mg/dl (Neg); UA COLLECTION TYPE FOLEY CATH; UROBILINOGEN,URINE 0.2 E.U/dL (0.2-1.0)
[2018-06-25 16:08] LABS: BACTERIA,URINE NONE SEEN /HPF (Neg); MUCUS STRANDS NONE SEEN /LPF (Neg); SQUAMOUS EPITHELIAL CELL,UR NONE SEEN /LPF (FEW); WBC,URINE NONE SEEN /HPF (0-4)
[2018-06-25] MEDS ORDERED: ondansetron/PF 4mg/2ml inj IV PRN (16:25)
[2018-06-25] MEDS ORDERED: magnesium hydroxide 30ml (MOM) UD suspension PO PRN (16:25)
[2018-06-25] MEDS ORDERED: acetaminophen 325mg tablet PO PRN (16:25)
[2018-06-25] MEDS ORDERED: mag hydrox/Alum hydrox/simeth 30ml oral suspension PO PRN (16:25)
[2018-06-25 16:30] LABS: ABG BASE EXCESS 5.6 mmol/L (-2.0-3.0); ABG HCO3 29.5 mmol/L (22.0-26.0); ABG OXYGEN SATURATION 95.2 % (95-98); ABG PCO2 (T) 40.2 mmHg (35.0-48.0); ABG PH (T) 7.483 (7.350-7.450); ABG PO2 (T) 79.4 mmHg (83-108); ALLEN'S TEST Positive; FCOHb 0.2 % (0.5-1.5); FLOW 2 L/min; FMetHb 0.3 % (0.3-1.12); FO2Hb 94.7 % (94-100); TOTAL HEMOGLOBIN 10.5 G/dl (14.0-18.0)
[2018-06-25] MEDS ORDERED: MESSAGE TO PHARMACY PO ONE (16:30)
[2018-06-25] MEDS ORDERED: dextrose ORAL solution 15 GM/59 ML bottle PO PRN ×2 (16:30)
[2018-06-25] MEDS ORDERED: insulin Lispro (HumaLOG) vial - multi-dose SQ SCH (16:30)
[2018-06-25] MEDS ORDERED: glucagon, human recombinant 1mg kit SUBCUT PRN (16:30)
[2018-06-25] MEDS ORDERED: dextrose 50%-water 50ml dispensing syringe IV PRN ×2 (16:30)
[2018-06-25] MEDS: normal saline 1000ml 1,000 ML IV SCH (16:53)
[2018-06-25] MEDS ORDERED: ACET-2119 PO (18:48)
[2018-06-25] MEDS ORDERED: INSU100C10 SQ (18:48)
[2018-06-25] MEDS ORDERED: PRAV40TA3 PO (18:48)
[2018-06-25] MEDS ORDERED: DOCU-28 PO (18:48)
[2018-06-25] MEDS ORDERED: ALBU2.5V12 NEB (18:48)
[2018-06-25] MEDS ORDERED: OMEP20CA10 PO (18:48)
[2018-06-25] MEDS ORDERED: SILV20CR13 TOP (18:48)
[2018-06-25] MEDS ORDERED: LORA-269 PO (18:48)
[2018-06-25] MEDS ORDERED: LACT1CAP26 PO (18:48)
[2018-06-25] MEDS ORDERED: HYDR-4383 PO (18:48)
[2018-06-25] MEDS ORDERED: NYSPWD TP (18:48)
[2018-06-25 20:00] VITALS: BP 111/66
[2018-06-25] MEDS ORDERED: cefepime 2gm inj IV SCH (20:00)
[2018-06-25] MEDS ORDERED: OLANZapine 5mg rapidly disint. tablet PO ONE (20:45)
[2018-06-25] MEDS: insulin glargine (Lantus) pen - multi-dose SQ SCH (21:00)
[2018-06-25] MEDS: heparin, porcine 5000 units/ml vial SQ SCH (22:00)
[2018-06-26] VITALS (11 sets, daily range): BP systolic 136–164; BP diastolic 71–84
[2018-06-26] MEDS: normal saline 1000ml 1,000 ML IV SCH (00:08)
[2018-06-26] MEDS: cefepime 1GM/NS ADD-VANTAGE 100 ML IV SCH ×3 (00:08→22:00)
[2018-06-26 05:11] LABS: ALANINE AMINOTRANSFERASE 42 U/L (12-78); ALBUMIN 1.8 G/DL (3.4-5.0); ALBUMIN/GLOBULIN RATIO 0.3 (1.1-1.5); ALKALINE PHOSPHATASE 113 IU/L (46-116); ANION GAP 8 (8-16); ASPARTATE AMINO TRANSFERASE 33 U/L (10-37); BLOOD UREA NITROGEN 63 MG/DL (7-18); BUN/CREATININE RATIO 11.5 (5.4-32.0); CALCIUM 8.7 MG/DL (8.5-10.1); CHLORIDE 100 MMOL/L (99-107); CREATININE 5.48 MG/DL (0.60-1.10); GLUCOSE 129 MG/DL (70-104); MAGNESIUM 1.8 MG/DL (1.5-2.4); PHOSPHORUS 5.5 MG/DL (2.3-4.5); POTASSIUM 4.5 MMOL/L (3.5-5.1); SODIUM 139 MMOL/L (135-145); TOTAL CARBON DIOXIDE 31.2 MMOL/L (24-32); TOTAL PROTEIN 7.4 G/DL (6.4-8.2); eGFR 10 ML/MIN
[2018-06-26 05:16] LABS: BASOPHILS # (AUTO) 0.1 X10'3 (0-0.2); BASOPHILS % (AUTO) 0.7 % (0-1); EOSINOPHILS # (AUTO) 0.2 X10'3 (0-0.9); EOSINOPHILS % (AUTO) 2.6 % (0-6); HEMATOCRIT 26.1 % (42.0-52.0); HEMOGLOBIN 8.6 g/dl (14.0-17.9); LYMPHOCYTES # (AUTO) 1.5 X10'3 (1.1-4.8); LYMPHOCYTES % (AUTO) 19.1 % (21-51); MEAN CORPUSCULAR HEMOGLOBIN 30.5 PG (27.0-31.0); MEAN CORPUSCULAR HGB CONC 33.1 % (33.0-36.5); MEAN PLATELET VOLUME 8.4 FL (7.4-10.4); MONOCYTES # (AUTO) 0.6 X10'3 (0-0.9); MONOCYTES % (AUTO) 7.4 % (2-12); NEUTROPHILS # (AUTO) 5.4 X10'3 (1.8-7.7); NEUTROPHILS % (AUTO) 70.2 % (42-75); PLATELET COUNT 423 X10'3 (140-440); RED BLOOD COUNT 2.84 X10'6 (4.70-6.10); RED CELL DISTRIBUTION WIDTH 14.9 % (11.5-14.5); WHITE BLOOD COUNT 7.7 X10'3 (4.5-11.0)
[2018-06-26] MEDS: heparin, porcine 5000 units/ml vial SQ SCH ×2 (08:32→22:02)
[2018-06-26] MEDS ORDERED: normal saline 1000ml 1,000 ML IV SCH (11:42)
[2018-06-26] MEDS ORDERED: fentaNYL/PF 50MCG/1 ML 2ML syringe IV PRN (11:45)
[2018-06-26] MEDS ORDERED: midazolam 2 mg/2 ml injection IV PRN (11:45)
[2018-06-26] MEDS ORDERED: heparin 1,000 units/ml 10ml inj ICATH ONE (11:45)
[2018-06-26] MEDS ORDERED: LIDOcaine 1%/PF 5ML 10 MG/ML VIAL SQ ONE (11:45)
[2018-06-26] MEDS ORDERED: LIDOcaine 1%/PF 5ML 10 MG/ML VIAL ONE (11:47)
[2018-06-26] MEDS ORDERED: fentaNYL/PF 50MCG/1 ML 2ML syringe ONE (12:16)
[2018-06-26] MEDS ORDERED: heparin 1,000unit/ml 10ml vial 10 ML ONE (12:16)
[2018-06-26] MEDS ORDERED: midazolam 2 mg/2 ml injection ONE (12:16)
[2018-06-26] MEDS ORDERED: baclofen 10mg tablet PO PRN (16:20)
[2018-06-26] MEDS ORDERED: calcium acetate 667mg (PhosLO) capsule PO SCH ×2 (18:00)
[2018-06-26] MEDS: insulin glargine (Lantus) pen - multi-dose SQ SCH (21:00)
[2018-06-26] MEDS: HYDROcodone/acetaminophen 5mg/325mg tablet PO PRN (22:01)
[2018-06-26] MEDS: lactobacillus rhamnosus 10,000 MMU CELLS/CAPSULE PO SCH (22:01)
[2018-06-27] VITALS: BP 159/72
[2018-06-27] MEDS ORDERED: Melatonin 3mg tablet PO ONE (00:50)
[2018-06-27 03:23] VITALS: BP 160/50
[2018-06-27] MEDS: prazosin 1mg capsule PO STA ×2 (03:36→05:37)
[2018-06-27 05:58] VITALS: BP 162/62
[2018-06-27] MEDS: heparin, porcine 5000 units/ml vial SQ SCH ×2 (08:00→20:11)
[2018-06-27] MEDS: lactobacillus rhamnosus 10,000 MMU CELLS/CAPSULE PO SCH ×2 (08:00→20:00)
[2018-06-27] MEDS ORDERED: heparin 1,000unit/ml 10ml vial 10 ML IV ONE (09:06)
[2018-06-27] MEDS ORDERED: heparin 1,000 units/ml 10ml inj HE ONE ×2 (09:10)
[2018-06-27] MEDS ORDERED: epoetin 20,000 units/ml inj IV ONE (09:10)
[2018-06-27] MEDS ORDERED: albumin (human) 25% 100ml IV 100 ML IV PRN (09:10)
[2018-06-27] MEDS ORDERED: heparin 1,000 units/ml 10ml inj IV ONE (09:10)
[2018-06-27] MEDS ORDERED: ziprasidone IM 20mg inj **IM only IM ONE (09:45)
[2018-06-27 12:33] LABS: BASOPHILS # (AUTO) 0.1 X10'3 (0-0.2); BASOPHILS % (AUTO) 0.7 % (0-1); EOSINOPHILS # (AUTO) 0.2 X10'3 (0-0.9); EOSINOPHILS % (AUTO) 1.9 % (0-6); HEMATOCRIT 27.9 % (42.0-52.0); HEMOGLOBIN 9.3 g/dl (14.0-17.9); LYMPHOCYTES # (AUTO) 1.3 X10'3 (1.1-4.8); LYMPHOCYTES % (AUTO) 15.3 % (21-51); MEAN CORPUSCULAR HEMOGLOBIN 30.5 PG (27.0-31.0); MEAN CORPUSCULAR HGB CONC 33.1 % (33.0-36.5); MEAN CORPUSCULAR VOLUME 91.9 FL (78-98); MEAN PLATELET VOLUME 7.8 FL (7.4-10.4); MONOCYTES # (AUTO) 0.8 X10'3 (0-0.9); MONOCYTES % (AUTO) 9.4 % (2-12); NEUTROPHILS # (AUTO) 6.2 X10'3 (1.8-7.7); NEUTROPHILS % (AUTO) 72.7 % (42-75); PLATELET COUNT 432 X10'3 (140-440); RED BLOOD COUNT 3.04 X10'6 (4.70-6.10); RED CELL DISTRIBUTION WIDTH 14.7 % (11.5-14.5); WHITE BLOOD COUNT 8.6 X10'3 (4.5-11.0)
[2018-06-27 12:51] LABS: ALANINE AMINOTRANSFERASE 40 U/L (12-78); ALBUMIN 2.1 G/DL (3.4-5.0); ALBUMIN/GLOBULIN RATIO 0.3 (1.1-1.5); ALKALINE PHOSPHATASE 111 IU/L (46-116); ANION GAP 11 (8-16); ASPARTATE AMINO TRANSFERASE 38 U/L (10-37); BILIRUBIN,TOTAL 0.9 MG/DL (0.1-1.0); BLOOD UREA NITROGEN 63 MG/DL (7-18); BUN/CREATININE RATIO 11.1 (5.4-32.0); CALCIUM 9.1 MG/DL (8.5-10.1); CHLORIDE 103 MMOL/L (99-107); CREATININE 5.69 MG/DL (0.60-1.10); GLUCOSE 134 MG/DL (70-104); MAGNESIUM 1.9 MG/DL (1.5-2.4); PHOSPHORUS 5.5 MG/DL (2.3-4.5); POTASSIUM 5.2 MMOL/L (3.5-5.1); SODIUM 141 MMOL/L (135-145); TOTAL CARBON DIOXIDE 27.3 MMOL/L (24-32); TOTAL PROTEIN 8.4 G/DL (6.4-8.2); eGFR 10 ML/MIN
[2018-06-27] MEDS ORDERED: OLANZapine 5mg rapidly disint. tablet PO ONE (14:40)
[2018-06-27 15:00] VITALS: BP 148/88
[2018-06-27 19:00] VITALS: BP 130/89
[2018-06-27] MEDS: OLANZapine 5mg rapidly disint. tablet PO SCH (20:00)
[2018-06-27] MEDS ORDERED: Melatonin 3mg tablet PO SCH (21:00)
[2018-06-27] MEDS: insulin glargine (Lantus) pen - multi-dose SQ SCH (21:00)
[2018-06-27 23:00] VITALS: BP 141/62
[2018-06-28] MEDS: doxycycline inj 100 MG in normal saline 100ml IV soln 100 ML IV SCH ×3 (01:03→22:50)
[2018-06-28 03:00] VITALS: BP 150/80
[2018-06-28 06:00] VITALS: BP 167/71
[2018-06-28 06:18] LABS: BASOPHILS % (AUTO) 0.6 % (0-1); EOSINOPHILS # (AUTO) 0.2 X10'3 (0-0.9); EOSINOPHILS % (AUTO) 2.4 % (0-6); HEMATOCRIT 26.7 % (42.0-52.0); HEMOGLOBIN 8.9 g/dl (14.0-17.9); LYMPHOCYTES # (AUTO) 1.6 X10'3 (1.1-4.8); LYMPHOCYTES % (AUTO) 18.1 % (21-51); MEAN CORPUSCULAR HEMOGLOBIN 30.4 PG (27.0-31.0); MEAN CORPUSCULAR HGB CONC 33.1 % (33.0-36.5); MEAN CORPUSCULAR VOLUME 91.9 FL (78-98); MEAN PLATELET VOLUME 7.8 FL (7.4-10.4); MONOCYTES # (AUTO) 0.8 X10'3 (0-0.9); MONOCYTES % (AUTO) 8.8 % (2-12); NEUTROPHILS # (AUTO) 6.2 X10'3 (1.8-7.7); NEUTROPHILS % (AUTO) 70.1 % (42-75); PLATELET COUNT 386 X10'3 (140-440); RED BLOOD COUNT 2.91 X10'6 (4.70-6.10); RED CELL DISTRIBUTION WIDTH 14.8 % (11.5-14.5); WHITE BLOOD COUNT 8.8 X10'3 (4.5-11.0)
[2018-06-28 06:33] LABS: ALANINE AMINOTRANSFERASE 38 U/L (12-78); ALBUMIN/GLOBULIN RATIO 0.3 (1.1-1.5); ALKALINE PHOSPHATASE 103 IU/L (46-116); ANION GAP 10 (8-16); ASPARTATE AMINO TRANSFERASE 33 U/L (10-37); BILIRUBIN,TOTAL 0.9 MG/DL (0.1-1.0); BLOOD UREA NITROGEN 39 MG/DL (7-18); BUN/CREATININE RATIO 8.7 (5.4-32.0); CALCIUM 8.7 MG/DL (8.5-10.1); CHLORIDE 102 MMOL/L (99-107); CREATININE 4.47 MG/DL (0.60-1.10); GLUCOSE 101 MG/DL (70-104); MAGNESIUM 1.8 MG/DL (1.5-2.4); PHOSPHORUS 4.4 MG/DL (2.3-4.5); POTASSIUM 4.4 MMOL/L (3.5-5.1); SODIUM 138 MMOL/L (135-145); TOTAL CARBON DIOXIDE 26.4 MMOL/L (24-32); TOTAL PROTEIN 7.9 G/DL (6.4-8.2); eGFR 13 ML/MIN
[2018-06-28] MEDS: lactobacillus rhamnosus 10,000 MMU CELLS/CAPSULE PO SCH ×2 (09:06→20:00)
[2018-06-28] MEDS: OLANZapine 5mg rapidly disint. tablet PO SCH ×2 (09:06→20:00)
[2018-06-28] MEDS: heparin, porcine 5000 units/ml vial SQ SCH ×2 (09:09→20:00)
[2018-06-28 11:00] VITALS: BP 132/69
[2018-06-28] MEDS ORDERED: heparin 1,000unit/ml 10ml vial 10 ML IV ONE (12:07)
[2018-06-28] MEDS ORDERED: albumin (human) 25% 100ml IV 100 ML IV PRN (12:10)
[2018-06-28] MEDS ORDERED: heparin 1,000 units/ml 10ml inj IV ONE (12:10)
[2018-06-28] MEDS ORDERED: epoetin 20,000 units/ml inj IV ONE (12:10)
[2018-06-28] MEDS ORDERED: heparin 1,000 units/ml 10ml inj HE ONE ×2 (12:15)
[2018-06-28] MEDS: HYDROcodone/acetaminophen 5mg/325mg tablet PO PRN (12:19)
[2018-06-28 15:00] VITALS: BP 169/73
[2018-06-28] MEDS ORDERED: ziprasidone IM 20mg inj **IM only IM ONE (15:45)
[2018-06-28] MEDS ORDERED: non-formulary drug (Omeprazole 1 CAP) PO SCH (17:00)
[2018-06-28] MEDS: pantoprazole 40mg Tablet.DR PO SCH (17:33)
[2018-06-28 19:00] VITALS: BP 156/78
[2018-06-28] MEDS: nystatin 15 GM powder TP SCH (20:00)
[2018-06-28] MEDS: silver sulfadiazine cream 50gm TP SCH (20:00)
[2018-06-28] MEDS: magnesium oxide 400mg tablet PO SCH (20:00)
[2018-06-28] MEDS: pravastatin 40mg tablet PO SCH (21:00)
[2018-06-28] MEDS: insulin glargine (Lantus) pen - multi-dose SQ SCH (21:00)
[2018-06-28 23:00] VITALS: BP 162/81
[2018-06-29 02:55] VITALS: BP 146/73
[2018-06-29 05:03] LABS: BASOPHILS % (AUTO) 0.4 % (0-1); EOSINOPHILS # (AUTO) 0.3 X10'3 (0-0.9); HEMATOCRIT 29.5 % (42.0-52.0); HEMOGLOBIN 9.7 g/dl (14.0-17.9); LYMPHOCYTES # (AUTO) 1.7 X10'3 (1.1-4.8); MEAN CORPUSCULAR HEMOGLOBIN 30.5 PG (27.0-31.0); MEAN CORPUSCULAR VOLUME 92.5 FL (78-98); MEAN PLATELET VOLUME 7.7 FL (7.4-10.4); MONOCYTES # (AUTO) 1.1 X10'3 (0-0.9); MONOCYTES % (AUTO) 10.5 % (2-12); NEUTROPHILS % (AUTO) 69.1 % (42-75); PLATELET COUNT 378 X10'3 (140-440); RED BLOOD COUNT 3.19 X10'6 (4.70-6.10); RED CELL DISTRIBUTION WIDTH 14.7 % (11.5-14.5); WHITE BLOOD COUNT 10.2 X10'3 (4.5-11.0)
[2018-06-29 05:39] LABS: ALANINE AMINOTRANSFERASE 32 U/L (12-78); ALBUMIN 2.2 G/DL (3.4-5.0); ALBUMIN/GLOBULIN RATIO 0.4 (1.1-1.5); ALKALINE PHOSPHATASE 97 IU/L (46-116); ANION GAP 10 (8-16); ASPARTATE AMINO TRANSFERASE 31 U/L (10-37); BILIRUBIN,TOTAL 0.8 MG/DL (0.1-1.0); BLOOD UREA NITROGEN 25 MG/DL (7-18); BUN/CREATININE RATIO 7.4 (5.4-32.0); CHLORIDE 101 MMOL/L (99-107); GLUCOSE 103 MG/DL (70-104); MAGNESIUM 1.7 MG/DL (1.5-2.4); PHOSPHORUS 3.3 MG/DL (2.3-4.5); POTASSIUM 4.3 MMOL/L (3.5-5.1); SODIUM 139 MMOL/L (135-145); TOTAL CARBON DIOXIDE 28.1 MMOL/L (24-32); TOTAL PROTEIN 8.2 G/DL (6.4-8.2); eGFR 18 ML/MIN
[2018-06-29 06:00] VITALS: BP 135/68
[2018-06-29] MEDS ORDERED: non-formulary drug (Losartan Potassium 1 TAB) PO SCH (08:00)
[2018-06-29] MEDS: silver sulfadiazine cream 50gm TP SCH ×2 (08:25→20:00)
[2018-06-29] MEDS: losartan 50mg tablet PO SCH (08:25)
[2018-06-29] MEDS: doxycycline inj 100 MG in normal saline 100ml IV soln 100 ML IV SCH ×2 (08:25→20:05)
[2018-06-29] MEDS: magnesium oxide 400mg tablet PO SCH ×2 (08:26→20:13)
[2018-06-29] MEDS: amLODIPine 5mg tablet PO SCH (08:26)
[2018-06-29] MEDS: aspirin 81mg tab.chew PO SCH (08:26)
[2018-06-29] MEDS: OLANZapine 5mg rapidly disint. tablet PO SCH ×2 (08:26→20:13)
[2018-06-29] MEDS: lactobacillus rhamnosus 10,000 MMU CELLS/CAPSULE PO SCH ×2 (08:26→20:13)
[2018-06-29] MEDS: heparin, porcine 5000 units/ml vial SQ SCH ×2 (08:27→20:06)
[2018-06-29] MEDS: nystatin 15 GM powder TP SCH ×2 (08:27→20:06)
[2018-06-29] MEDS: pravastatin 40mg tablet PO SCH ×2 (08:27→20:13)
[2018-06-29] MEDS: pantoprazole 40mg Tablet.DR PO SCH ×2 (08:42→17:06)
[2018-06-29] MEDS: LORazepam 0.5 MG tablet PO PRN (09:10)
[2018-06-29 11:00] VITALS: BP 162/65
[2018-06-29 15:00] VITALS: BP 112/67
[2018-06-29 19:00] VITALS: BP 158/83
[2018-06-29] MEDS: insulin glargine (Lantus) pen - multi-dose SQ SCH (21:00)
[2018-06-29 23:00] VITALS: BP 161/76
[2018-06-30] VITALS (8 sets, daily range): BP systolic 123–175; BP diastolic 53–89
[2018-06-30 02:00] LABS: CLARITY,URINE CLEAR (Clear); COLOR,URINE YELLOW (Yellow); GLUCOSE, URINE NEGATIVE (Neg); KETONES,URINE 15 mg/dl (Neg); LEUKOCYTE ESTERASE ,URINE TRACE (Neg); NITRITES, URINE NEGATIVE (Neg); OCCULT BLOOD,URINE MODERATE (Neg); PH,URINE 6.5 (4.8-8.0); PROTEIN,URINE 100 mg/dl (Neg); UROBILINOGEN,URINE 0.2 E.U/dL (0.2-1.0)
[2018-06-30 02:10] LABS: UA COLLECTION TYPE STRAIGHT CATH
[2018-06-30 02:11] LABS: WBC,URINE 0-4 /HPF (0-4)
[2018-06-30 02:12] LABS: BACTERIA,URINE FEW /HPF (Neg)
[2018-06-30 02:13] LABS: MUCUS STRANDS NONE SEEN /LPF (Neg); SQUAMOUS EPITHELIAL CELL,UR NONE SEEN /LPF (FEW)
[2018-06-30 02:14] LABS: FINE GRANULAR CAST 0-3 /LPF (NEGATIVE)
[2018-06-30 02:58] LABS: UA EOSINOPHILS NO EOS /HPF
[2018-06-30 07:10] LABS: BASOPHILS % (AUTO) 0.4 % (0-1); EOSINOPHILS # (AUTO) 0.3 X10'3 (0-0.9); HEMATOCRIT 29.3 % (42.0-52.0); HEMOGLOBIN 9.8 g/dl (14.0-17.9); LYMPHOCYTES # (AUTO) 2.7 X10'3 (1.1-4.8); LYMPHOCYTES % (AUTO) 25.2 % (21-51); MEAN CORPUSCULAR HEMOGLOBIN 30.7 PG (27.0-31.0); MEAN CORPUSCULAR HGB CONC 33.3 % (33.0-36.5); MEAN CORPUSCULAR VOLUME 92.4 FL (78-98); MEAN PLATELET VOLUME 7.9 FL (7.4-10.4); MONOCYTES % (AUTO) 9.5 % (2-12); NEUTROPHILS # (AUTO) 6.6 X10'3 (1.8-7.7); NEUTROPHILS % (AUTO) 61.9 % (42-75); PLATELET COUNT 373 X10'3 (140-440); RED BLOOD COUNT 3.17 X10'6 (4.70-6.10); WHITE BLOOD COUNT 10.7 X10'3 (4.5-11.0)
[2018-06-30 07:25] LABS: ALANINE AMINOTRANSFERASE 30 U/L (12-78); ALBUMIN 2.2 G/DL (3.4-5.0); ALBUMIN/GLOBULIN RATIO 0.4 (1.1-1.5); ALKALINE PHOSPHATASE 94 IU/L (46-116); ANION GAP 9 (8-16); ASPARTATE AMINO TRANSFERASE 28 U/L (10-37); BILIRUBIN,TOTAL 0.7 MG/DL (0.1-1.0); BLOOD UREA NITROGEN 37 MG/DL (7-18); BUN/CREATININE RATIO 8.2 (5.4-32.0); CALCIUM 8.9 MG/DL (8.5-10.1); CHLORIDE 104 MMOL/L (99-107); CREATININE 4.53 MG/DL (0.60-1.10); GLUCOSE 108 MG/DL (70-104); MAGNESIUM 1.9 MG/DL (1.5-2.4); PHOSPHORUS 4.2 MG/DL (2.3-4.5); SODIUM 141 MMOL/L (135-145); TOTAL CARBON DIOXIDE 27.8 MMOL/L (24-32); TOTAL PROTEIN 7.8 G/DL (6.4-8.2); eGFR 13 ML/MIN
[2018-06-30 07:26] LABS: POTASSIUM 4.7 MMOL/L (3.5-5.1)
[2018-06-30] MEDS: pantoprazole 40mg Tablet.DR PO SCH ×2 (07:55→17:04)
[2018-06-30] MEDS: silver sulfadiazine cream 50gm TP SCH ×2 (07:55→21:37)
[2018-06-30] MEDS: nystatin 15 GM powder TP SCH ×2 (07:55→21:36)
[2018-06-30] MEDS: lactobacillus rhamnosus 10,000 MMU CELLS/CAPSULE PO SCH ×2 (07:55→21:23)
[2018-06-30] MEDS: doxycycline inj 100 MG in normal saline 100ml IV soln 100 ML IV SCH ×2 (07:55→21:21)
[2018-06-30] MEDS: magnesium oxide 400mg tablet PO SCH ×2 (07:55→21:22)
[2018-06-30] MEDS: aspirin 81mg tab.chew PO SCH (07:55)
[2018-06-30] MEDS: LORazepam 0.5 MG tablet PO PRN (08:09)
[2018-06-30] MEDS: amLODIPine 5mg tablet PO SCH (08:12)
[2018-06-30] MEDS: losartan 50mg tablet PO SCH (08:12)
[2018-06-30] MEDS: OLANZapine 5mg rapidly disint. tablet PO SCH (08:13)
[2018-06-30] MEDS: heparin, porcine 5000 units/ml vial SQ SCH ×2 (08:17→21:22)
[2018-06-30] MEDS ORDERED: heparin 1,000unit/ml 10ml vial 10 ML IV ONE (09:59)
[2018-06-30] MEDS ORDERED: normal saline 1000ml 250 ML IV PRN (09:59)
[2018-06-30] MEDS ORDERED: epoetin 20,000 units/ml inj IV ONE (10:00)
[2018-06-30] MEDS ORDERED: heparin 1,000 units/ml 10ml inj HE ONE ×2 (10:05)
[2018-06-30] MEDS: LORazepam 2 mg/ml vial IV PRN (14:06)
[2018-06-30] MEDS ORDERED: NUT.TX.IMP.RENAL FXN,LAC-REDUC (Nepro) 237 ML VANILLA PO SCH (18:00)
[2018-06-30] MEDS: insulin glargine (Lantus) pen - multi-dose SQ SCH (21:00)
[2018-06-30] MEDS: pravastatin 40mg tablet PO SCH (21:22)
[2018-07-01 02:00] VITALS: BP 144/64
[2018-07-01 06:00] VITALS: BP 110/62
[2018-07-01] MEDS: LORazepam 2 mg/ml vial IV PRN (07:46)
[2018-07-01] MEDS: silver sulfadiazine cream 50gm TP SCH ×2 (08:00→08:55)
[2018-07-01] MEDS: doxycycline inj 100 MG in normal saline 100ml IV soln 100 ML IV SCH (08:52)
[2018-07-01] MEDS: magnesium oxide 400mg tablet PO SCH (08:54)
[2018-07-01] MEDS: lactobacillus rhamnosus 10,000 MMU CELLS/CAPSULE PO SCH (08:55)
[2018-07-01] MEDS: amLODIPine 5mg tablet PO SCH (08:55)
[2018-07-01] MEDS: pantoprazole 40mg Tablet.DR PO SCH (08:55)
[2018-07-01] MEDS: nystatin 15 GM powder TP SCH (08:55)
[2018-07-01] MEDS: losartan 50mg tablet PO SCH (08:55)
[2018-07-01] MEDS: aspirin 81mg tab.chew PO SCH (08:55)
[2018-07-01] MEDS: heparin, porcine 5000 units/ml vial SQ SCH (08:56)
[2018-07-01 11:00] VITALS: BP 130/54
[2018-07-01 11:19] LABS: ALBUMIN 2.3 G/DL (3.4-5.0); ANION GAP 9 (8-16); BLOOD UREA NITROGEN 22 MG/DL (7-18); BUN/CREATININE RATIO 5.9 (5.4-32.0); CALCIUM 8.6 MG/DL (8.5-10.1); CHLORIDE 100 MMOL/L (99-107); GLUCOSE 120 MG/DL (70-104); POTASSIUM 4.1 MMOL/L (3.5-5.1); SODIUM 137 MMOL/L (135-145); TOTAL CARBON DIOXIDE 28.1 MMOL/L (24-32); eGFR 16 ML/MIN
== END 2018-07-01 14:45 | DRG 673 ==
LOC: ER 14:27 → ED HOLD 16:24 → SUR 3N 19:36 → PCU 3S 06-27 11:41
PROVIDERS: ADMIT Internal Medicine; ATTEND Family Medicine
PROC: 0JH63XZ Insertion of Tunneled Vascular Access Device into Chest Subcutaneous Tissue and Fascia, Percutaneous Approach (ICD-10-PCS; 2018-06-26)
PROC: 02H633Z Insertion of Infusion Device into Right Atrium, Percutaneous Approach (ICD-10-PCS; 2018-06-26)
PROC: B244ZZZ Ultrasonography of Right Heart (ICD-10-PCS; 2018-06-26)
PROC: 5A1D70Z Performance of Urinary Filtration, Intermittent, Less than 6 Hours Per Day (ICD-10-PCS; 2018-06-27)
PROC: 5A1D70Z Performance of Urinary Filtration, Intermittent, Less than 6 Hours Per Day (ICD-10-PCS; 2018-06-28)
PROC: 5A1D70Z Performance of Urinary Filtration, Intermittent, Less than 6 Hours Per Day (ICD-10-PCS; principal; 2018-06-30)
DX: N17.9 Acute kidney failure, unspecified (principal); G92 Toxic encephalopathy; I12.0 Hypertensive chronic kidney disease with stage 5 chronic kidney disease or end stage renal disease; M00.9 Pyogenic arthritis, unspecified; L97.919 Non-pressure chronic ulcer of unspecified part of right lower leg with unspecified severity; L97.929 Non-pressure chronic ulcer of unspecified part of left lower leg with unspecified severity; G24.09 Other drug induced dystonia; N18.6 End stage renal disease; E11.22 Type 2 diabetes mellitus with diabetic chronic kidney disease; E66.01 Morbid (severe) obesity due to excess calories; E78.5 Hyperlipidemia, unspecified; G47.33 Obstructive sleep apnea (adult) (pediatric); E11.621 Type 2 diabetes mellitus with foot ulcer; D64.9 Anemia, unspecified; I25.10 Atherosclerotic heart disease of native coronary artery without angina pectoris; T43.595A Adverse effect of other antipsychotics and neuroleptics, initial encounter; I48.91 Unspecified atrial fibrillation; G89.29 Other chronic pain; Z95.0 Presence of cardiac pacemaker; Z88.1 Allergy status to other antibiotic agents; Z88.8 Allergy status to other drugs, medicaments and biological substances; Z79.82 Long term (current) use of aspirin; Z79.4 Long term (current) use of insulin; Z79.84 Long term (current) use of oral hypoglycemic drugs; Y92.89 Other specified places as the place of occurrence of the external cause; Z68.32 Body mass index [BMI] 32.0-32.9, adult
CPT/HCPCS: 36415; 36558; 36600; 70450; 71045; 76937; 77001; 80048; 80053; 81001; 82140; 82570; 82803; 82948; 83036; 83605; 83735; 84100; 84300; 84484; 85018; 85025; 85610; 85730; 87040; 87207; 90935; 93005; 99152; 99153; 99285; C1750; C1894; G0257; J0692; J0885; J1644; J1815; J2001; J2060; J2150; J2250; J3010; J3486; J3490; J7030

== ENCOUNTER 2018-07-07 11:39 | Day surgery (SDC) | payer MEDICAID, OTHER ==
[~2018-07-07] VITALS: Ht 162.6 cm; Wt 117.0 kg
[2018-07-07 11:30] VITALS: BP 140/82
[~2018-07-07 11:39] MED LIST changes: +ACET-2119 PO; +ALBU2.5V12 NEB; -ATOR10TA87 PO; +DOCU-28 PO; -GLIP5TAB13 PO; +HYDR-4383 PO; +INSU100C10 SQ; +LACT1CAP26 PO; +LORA-269 PO; +NYSPWD TP; +OMEP20CA10 PO; +PRAV40TA3 PO; +SILV20CR13 TOP
[2018-07-07] MEDS ORDERED: clindamycin 600mg/D5W 50ml 50 ML IV ONE (12:00)
[2018-07-07] MEDS ORDERED: normal saline 1000ml 1,000 ML IV SCH (12:00)
[2018-07-07] MEDS ORDERED: VALS40TA2 PO (12:25)
[2018-07-07] MEDS ORDERED: DOXY100C2 PO (12:25)
[2018-07-07] MEDS ORDERED: HEPA100D36 SUBCUT (12:25)
[2018-07-07] MEDS ORDERED: heparin 1,000unit/ml 10ml vial 10 ML ONE (13:27)
[2018-07-07] MEDS ORDERED: fentaNYL/PF 50MCG/1 ML 2ML syringe ONE (13:27)
[2018-07-07] MEDS ORDERED: LIDOcaine 1%/PF 5ML 10 MG/ML VIAL SQ ONE (13:30)
[2018-07-07] MEDS ORDERED: heparin 1,000 units/ml 10ml inj ICATH ONE (13:30)
[2018-07-07] MEDS ORDERED: fentaNYL/PF 50MCG/1 ML 2ML syringe IV PRN (13:30)
[2018-07-07] MEDS ORDERED: LIDOcaine 1% (10mg/ml) 2ml vial ONE (13:37)
[2018-07-07 14:25] VITALS: BP 129/68
[2018-07-07 14:30] VITALS: BP 134/77
[2018-07-07 14:45] VITALS: BP 135/76
== END 2018-07-07 15:00 | disposition home or self-care (01) ==
LOC: SSTAY O 11:39
PROVIDERS: ATTEND Radiology Diagnostic Radiology
DX: T82.49XA Other complication of vascular dialysis catheter, initial encounter (principal); Y83.8 Other surgical procedures as the cause of abnormal reaction of the patient, or of later complication, without mention of misadventure at the time of the procedure; Y92.89 Other specified places as the place of occurrence of the external cause; E11.22 Type 2 diabetes mellitus with diabetic chronic kidney disease; I12.9 Hypertensive chronic kidney disease with stage 1 through stage 4 chronic kidney disease, or unspecified chronic kidney disease; N18.9 Chronic kidney disease, unspecified; G89.29 Other chronic pain; I25.10 Atherosclerotic heart disease of native coronary artery without angina pectoris; I48.91 Unspecified atrial fibrillation; M19.90 Unspecified osteoarthritis, unspecified site; Z87.442 Personal history of urinary calculi; Z90.89 Acquired absence of other organs; Z86.69 Personal history of other diseases of the nervous system and sense organs; Z95.0 Presence of cardiac pacemaker; Z88.1 Allergy status to other antibiotic agents; Z79.891 Long term (current) use of opiate analgesic; Z79.4 Long term (current) use of insulin; Z79.82 Long term (current) use of aspirin; Z87.820 Personal history of traumatic brain injury; Z88.8 Allergy status to other drugs, medicaments and biological substances; Z79.899 Other long term (current) drug therapy; Z98.890 Other specified postprocedural states
CPT/HCPCS: 36581; 77001; C1750; J1644; J3490; A9270; C1769; J3010

== ENCOUNTER 2020-04-04 11:18 | Day surgery (SDC) | payer MEDICARE, MEDICAID ==
[~2020-04-04] VITALS: Ht 160 cm; Wt 72.4 kg
[2020-04-04] VITALS (8 sets, daily range): BP systolic 103–166; BP diastolic 48–89
[~2020-04-04 11:18] MED LIST changes: -DOCU-28 PO; +DOXY100C2 PO; -ERGO400C PO; +HEPA100D36 SUBCUT; -LOSA100T15 PO; +MAGN400T28 PO; -MAGN400T6 PO; -NYSPWD TP; -OMEP20CA10 PO; +OMEP20CA15 PO; +VALS40TA2 PO
[2020-04-04] MEDS ORDERED: tPA-cathflo 2 MG/2 ml IV flush ONE ×2 (11:41→15:36)
[2020-04-04] MEDS ORDERED: normal saline 1000ml 1,000 ML IV SCH (11:50)
[2020-04-04] MEDS ORDERED: FOLI0.8T7 PO (12:00)
[2020-04-04] MEDS ORDERED: folic acid PO (12:00)
[2020-04-04] MEDS ORDERED: MOME45CR3 TOP (12:03)
[2020-04-04] MEDS ORDERED: APIX5TAB3 PO (12:03)
--- NOTE | 2020-04-04 12:05 | NUR ---
MD Mccracken at bedside with Dayna Galo from [facility]. TpA administered by Dr. Mccracken into left fistula. Will continue to monitor.
[2020-04-04 12:35] LABS: BASOPHILS % (AUTO) 0.6 % (0-1); EOSINOPHILS # (AUTO) 0.1 X10'3 (0-0.9); HEMATOCRIT 33.1 % (42.0-52.0); HEMOGLOBIN 11.1 g/dl (14.0-17.9); LYMPHOCYTES # (AUTO) 1.3 X10'3 (1.1-4.8); LYMPHOCYTES % (AUTO) 17.9 % (21-51); MEAN CORPUSCULAR HEMOGLOBIN 33.2 PG (27.0-31.0); MEAN CORPUSCULAR HGB CONC 33.5 g/dL (33.0-36.5); MEAN CORPUSCULAR VOLUME 99.1 FL (78-98); MEAN PLATELET VOLUME 8.3 FL (7.4-10.4); MONOCYTES # (AUTO) 0.5 X10'3 (0-0.9); MONOCYTES % (AUTO) 7.4 % (2-12); NEUTROPHILS # (AUTO) 5.4 X10'3 (1.8-7.7); NEUTROPHILS % (AUTO) 73.1 % (42-75); PLATELET COUNT 191 X10'3 (140-440); RED BLOOD COUNT 3.34 X10'6 (4.70-6.10); RED CELL DISTRIBUTION WIDTH 13.8 % (11.5-14.5); WHITE BLOOD COUNT 7.4 X10'3 (4.5-11.0)
[2020-04-04 13:07] LABS: ALBUMIN 3.4 G/DL (3.4-5.0); ANION GAP 9 (8-16); BLOOD UREA NITROGEN 72 MG/DL (7-18); BUN/CREATININE RATIO 21.1 (5.4-32.0); CALCIUM 9.7 MG/DL (8.5-10.1); CHLORIDE 106 MMOL/L (99-107); CREATININE 3.42 MG/DL (0.60-1.10); GLUCOSE 112 MG/DL (70-104); POTASSIUM 4.8 MMOL/L (3.5-5.1); SODIUM 139 MMOL/L (135-145); TOTAL CARBON DIOXIDE 24.5 MMOL/L (24-32); eGFR 17 ML/MIN
[2020-04-04] MEDS ORDERED: fentaNYL/PF 50MCG/1 ML 2ML syringe ONE ×4 (14:39→16:35)
[2020-04-04] MEDS ORDERED: midazolam 2 mg/2 ml injection ONE ×2 (14:39→15:28)
[2020-04-04] MEDS ORDERED: heparin 1,000 UNITS/NS 500ml 500 ML ONE ×2 (14:40→17:00)
[2020-04-04] MEDS ORDERED: iohexol 300mg/ml 100ml inj. ONE ×2 (14:40→16:21)
[2020-04-04] MEDS ORDERED: LIDOcaine 1%/PF 5ML 10 MG/ML VIAL ONE (14:40)
--- NOTE | 2020-04-04 14:52 | NUR ---
pt left floor for procedure
--- NOTE | 2020-04-04 15:21 | NUR ---
Vicky from [facility] called to inform patient that he should come in for Dialysis tomorrow 04/05/20. This will be relayed to patient.
[2020-04-04] MEDS ORDERED: heparin 1,000unit/ml 10ml vial 10 ML ONE (15:31)
[2020-04-04] MEDS ORDERED: diphenhydrAMINE 50 mg/ml inj ONE (16:30)
--- NOTE | 2020-04-04 17:35 | NUR ---
Pt back in room. Phoned [facility], they will remove purse string sutures at visit tomorrow.
--- NOTE | 2020-04-04 18:11 | NUR ---
Pt stool to use urinal, voided 250ml clear yellow.
--- NOTE | 2020-04-04 18:28 | NUR ---
Called MD at 1800 regarding upper arm purse string suture dressing appeared to be bleeding, MD request area be reassessed at 1830 and report back to him. Drsg has stayed the same and this was reported to MD. No s/s of active bleeding or infection. Pt verbalized understanding that sutures will be removed at his appointment tomorrow at [facility].
--- NOTE | 2020-04-04 18:31 | NUR ---
Problems reprioritized. Patient report given, questions answered & plan of care reviewed with Holli MATHEW.
== END 2020-04-04 19:15 | disposition home or self-care (01) ==
LOC: SSTAY O 11:18
PROVIDERS: ATTEND Radiology Vascular & Interventional Radiology
DX: T82.868A Thrombosis due to vascular prosthetic devices, implants and grafts, initial encounter (principal); N18.6 End stage renal disease; Z88.1 Allergy status to other antibiotic agents; Z88.8 Allergy status to other drugs, medicaments and biological substances; Z79.4 Long term (current) use of insulin; Z79.899 Other long term (current) drug therapy; Z95.0 Presence of cardiac pacemaker; Y83.2 Surgical operation with anastomosis, bypass or graft as the cause of abnormal reaction of the patient, or of later complication, without mention of misadventure at the time of the procedure; Y92.89 Other specified places as the place of occurrence of the external cause
CPT/HCPCS: 36415; 36905; 80048; 85025; 99152; 99153; C1725; C1769; C1894; J1200; J1644; J2250; J2997; J3010; Q9967

== ENCOUNTER 2024-03-30 16:29 | Inpatient (IN) | payer MEDICARE, MEDICAID ==
[~2024-03-30] VITALS: Ht 160 cm; Wt 79.2 kg
[~2024-03-30 16:29] MED LIST changes: -ACET-2119 PO; -ALBU2.5V12 NEB; -AMLO5TAB16 PO; +APIX5TAB3 PO; -ASPI-1265 PO; -DOXY100C2 PO; +FOLI0.8T7 PO; -HEPA100D36 SUBCUT; -HYDR-4383 PO; -INSU100C10 SQ; -LACT1CAP26 PO; -LORA-269 PO; -MAGN400T28 PO; +MOME45CR3 TOP; -OMEP20CA15 PO; -SILV20CR13 TOP; -VALS40TA2 PO; +folic acid PO
[2024-03-30] MEDS ORDERED: ringers solution, lacted 1,000 ML IV SCH (18:10)
[2024-03-30 18:12] LABS: BASOPHILS % (AUTO) 0.3 % (0-1); EOSINOPHILS # (AUTO) 0.1 X10'3 (0-0.9); HEMOGLOBIN 7.9 g/dl (14.0-17.9); LYMPHOCYTES # (AUTO) 0.8 X10'3 (1.1-4.8)
[2024-03-30 18:14] LABS: EOSINOPHILS % (AUTO) 0.5 % (0-6); HEMATOCRIT 23.8 % (42.0-52.0); LYMPHOCYTES % (AUTO) 5.6 % (21-51); MEAN CORPUSCULAR HEMOGLOBIN 31.4 PG (27.0-31.0); MEAN CORPUSCULAR HGB CONC 33.1 g/dL (33.0-36.5); MEAN CORPUSCULAR VOLUME 94.9 FL (78-98); MEAN PLATELET VOLUME 8.4 FL (7.4-10.4); MONOCYTES # (AUTO) 1.2 X10'3 (0-0.9); MONOCYTES % (AUTO) 8.1 % (2-12); NEUTROPHILS # (AUTO) 12.6 X10'3 (1.8-7.7); NEUTROPHILS % (AUTO) 85.5 % (42-75); PLATELET COUNT 230 X10'3 (140-440); WHITE BLOOD COUNT 14.8 X10'3 (4.5-11.0)
[2024-03-30 18:20] LABS: ALBUMIN 2.2 G/DL (3.4-5.0); ANION GAP 13 (8-16); BLOOD UREA NITROGEN 74 MG/DL (7-18); BUN/CREATININE RATIO 14.6 (10.0-20.0); CALCIUM 8.9 MG/DL (8.5-10.1); CHLORIDE 97 MMOL/L (99-107); CREATININE 5.08 MG/DL (0.60-1.10); GLUCOSE 142 MG/DL (70-104); MAGNESIUM 2.2 MG/DL (1.5-2.4); POTASSIUM 3.4 MMOL/L (3.5-5.1); SODIUM 132 MMOL/L (135-145); TOTAL CARBON DIOXIDE 22.2 MMOL/L (24-32); eCRCL 9 ML/MIN; eGFR 11 ML/MIN
[2024-03-30] MEDS ORDERED: acetaminophen 325mg tablet PO PRN (18:25)
[2024-03-30] MEDS ORDERED: magnesium sulf-water 4G/100mL 100 ML IV PRN (18:25)
[2024-03-30] MEDS ORDERED: ondansetron/PF 4mg/2ml inj IV PRN (18:25)
[2024-03-30] MEDS ORDERED: magnesium hydroxide 30ml (MOM) UD suspension PO PRN (18:25)
[2024-03-30] MEDS ORDERED: mag hydrox/Alum hydrox/simeth 30ml oral suspension PO PRN (18:25)
[2024-03-30] MEDS ORDERED: magnesium Cl slow-release 64mg tablet PO PRN (18:25)
[2024-03-30] MEDS ORDERED: potassium Cl 20 mEq SR tablet PO PRN (18:25)
[2024-03-30] MEDS ORDERED: potassium Cl 40MEQ/1/2NS 520ml 520 ML IV PRN (18:25)
[2024-03-30] MEDS ORDERED: magnesium sulf-water 2g/50mL 50 ML IV PRN (18:25)
[2024-03-30] MEDS ORDERED: HYDROcodone/acetaminophen 5mg/325mg tablet PO PRN (18:25)
[2024-03-30] MEDS ORDERED: dextrose 50%-water 50ml dispensing syringe IV PRN (19:05)
[2024-03-30] MEDS ORDERED: DEXTROSE 15 GM of carb/4 tabs (each vial/BOTTLE has 4 tablets) PO PRN (19:05)
[2024-03-30] MEDS: vancomycin/NS 1 GM ADD-VANTAGE 250 ML X 1 DOSE IV ONE (19:20)
[2024-03-30] MEDS: K and/or MAG REPLACEMENT MC SCH (19:26)
[2024-03-30] MEDS: docusate sod 100mg capsule PO SCH (19:28)
[2024-03-30 19:29] LABS: BILIRUBIN,URINE NEGATIVE (Neg); CLARITY,URINE CLEAR (Clear); COLOR,URINE YELLOW (Yellow); GLUCOSE, URINE 100 mg/dl (Neg); KETONES,URINE NEGATIVE (Neg); LEUKOCYTE ESTERASE ,URINE NEGATIVE (Neg); NITRITES, URINE NEGATIVE (Neg); OCCULT BLOOD,URINE TRACE-INTACT (Neg); PROTEIN,URINE 30 mg/dl (Neg); UROBILINOGEN,URINE 0.2 E.U/dL (0.2-1.0)
[2024-03-30 19:37] LABS: UA COLLECTION TYPE CLN CATCH MIDSTREAM
[2024-03-30 19:40] LABS: BACTERIA,URINE NONE SEEN /HPF (Neg); MUCUS STRANDS FEW /LPF (Neg); RBC,URINE 0-2 /HPF (0-2); SQUAMOUS EPITHELIAL CELL,UR FEW /LPF (FEW); WBC,URINE 0-4 /HPF (0-4)
[2024-03-30 19:41] LABS: AMORPHOUS URATES 1+
[2024-03-30 20:00] VITALS: BP 105/46; PULSE 96; RESP 16; TEMP 97.9; O2SAT 95
[2024-03-30 20:45] VITALS: BP 105/46; PULSE 96; RESP 16; TEMP 97.9; O2SAT 95
[2024-03-30 21:00] VITALS: BP 105/46; PULSE 96; RESP 16; TEMP 97.9; O2SAT 95
[2024-03-30] MEDS: INSULIN LISPRO 100 UNIT/ML INSULN.PEN MULTI-DOSE SQ SCH (21:00)
[2024-03-30] MEDS ORDERED: vancomycin/NS 1 GM ADD-VANTAGE 250 ML IV PRN (21:05)
[2024-03-30 22:00] VITALS: BP 88/52; PULSE 76; RESP 20; TEMP 97.4; O2SAT 98
[2024-03-30] MEDS: insulin glargine (Lantus) pen - multi-dose SQ SCH (23:50)
[2024-03-31] MEDS ORDERED: cefepime 2g/NS 100ml ADVANTAGE 100 ML IV SCH
[2024-03-31] MEDS ORDERED: APIX2.5T PO (03:00)
[2024-03-31] MEDS ORDERED: MULT-1085 PO (03:03)
[2024-03-31 06:00] VITALS: BP 92/52; PULSE 70; RESP 19; TEMP 97.8; O2SAT 99
[2024-03-31 08:00] VITALS: RESP 18; O2SAT 98
[2024-03-31 09:01] LABS: BASOPHILS # (AUTO) 0.1 X10'3 (0-0.2); BASOPHILS % (AUTO) 0.5 % (0-1); EOSINOPHILS # (AUTO) 0.2 X10'3 (0-0.9); EOSINOPHILS % (AUTO) 2.4 % (0-6); HEMATOCRIT 24.5 % (42.0-52.0); HEMOGLOBIN 8.1 g/dl (14.0-17.9); LYMPHOCYTES # (AUTO) 0.8 X10'3 (1.1-4.8); LYMPHOCYTES % (AUTO) 8.1 % (21-51); MEAN CORPUSCULAR HEMOGLOBIN 31.5 PG (27.0-31.0); MEAN CORPUSCULAR HGB CONC 33.1 g/dL (33.0-36.5); MEAN CORPUSCULAR VOLUME 95.2 FL (78-98); MEAN PLATELET VOLUME 8.5 FL (7.4-10.4); MONOCYTES # (AUTO) 1.1 X10'3 (0-0.9); MONOCYTES % (AUTO) 11.2 % (2-12); NEUTROPHILS # (AUTO) 7.8 X10'3 (1.8-7.7); NEUTROPHILS % (AUTO) 77.8 % (42-75); PLATELET COUNT 254 X10'3 (140-440); RED BLOOD COUNT 2.57 X10'6 (4.70-6.10); WHITE BLOOD COUNT 10.1 X10'3 (4.5-11.0)
[2024-03-31 09:26] LABS: ALANINE AMINOTRANSFERASE 33 U/L (12-78); ALBUMIN 2.1 G/DL (3.4-5.0); ALBUMIN/GLOBULIN RATIO 0.5 (1.1-1.5); ALKALINE PHOSPHATASE 129 IU/L (46-116); ANION GAP 17 (8-16); ASPARTATE AMINO TRANSFERASE 24 U/L (10-37); BILIRUBIN,TOTAL 0.6 MG/DL (0.1-1.0); BLOOD UREA NITROGEN 71 MG/DL (7-18); BUN/CREATININE RATIO 13.5 (10.0-20.0); CALCIUM 9.1 MG/DL (8.5-10.1); CHLORIDE 99 MMOL/L (99-107); CREATININE 5.24 MG/DL (0.60-1.10); GLUCOSE 90 MG/DL (70-104); POTASSIUM 3.3 MMOL/L (3.5-5.1); SODIUM 136 MMOL/L (135-145); TOTAL CARBON DIOXIDE 20.1 MMOL/L (24-32); TOTAL PROTEIN 6.7 G/DL (6.4-8.2); eCRCL 9 ML/MIN; eGFR 11 ML/MIN
[2024-03-31] MEDS: potassium Cl 20 mEq SR tablet PO PRN (09:35)
[2024-03-31 09:51] LABS: CHOL/HDL RATIO 4.2 (0.00-4.99); CHOLESTEROL 92 MG/DL (0-200); HDL CHOLESTEROL 22 MG/DL (35-60); LDL CHOLESTEROL 45 MG/DL (50-100); TRIGLYCERIDES 104 MG/DL (20-135)
[2024-03-31 10:00] VITALS: BP 97/50; PULSE 70; RESP 16; TEMP 98.9; O2SAT 95
[2024-03-31 10:35] LABS: THYROID STIMULATING HORMONE 1.93 ulU/ml (0.34-4.50)
[2024-03-31 18:00] VITALS: BP 127/71; PULSE 97; RESP 18; TEMP 98.5; O2SAT 95
[2024-03-31 22:00] VITALS: BP 100/52; PULSE 71; RESP 16; TEMP 98.1; O2SAT 97
[2024-04-01] VITALS (18 sets, daily range): BP systolic 89–128; BP diastolic 46–69; PULSE 69–97; RESP 16–20; TEMP 97.8–98.2; O2SAT 95–98
[2024-04-01] MEDS: VANCOMYCIN LEVEL IV SCH (03:00)
[2024-04-01 03:36] LABS: BASOPHILS % (AUTO) 0.6 % (0-1); EOSINOPHILS # (AUTO) 0.3 X10'3 (0-0.9); HEMATOCRIT 27.3 % (42.0-52.0); LYMPHOCYTES # (AUTO) 1.1 X10'3 (1.1-4.8); LYMPHOCYTES % (AUTO) 12.5 % (21-51); MEAN CORPUSCULAR HEMOGLOBIN 30.9 PG (27.0-31.0); MEAN CORPUSCULAR HGB CONC 32.9 g/dL (33.0-36.5); MEAN CORPUSCULAR VOLUME 93.7 FL (78-98); MEAN PLATELET VOLUME 7.9 FL (7.4-10.4); MONOCYTES # (AUTO) 1.1 X10'3 (0-0.9); MONOCYTES % (AUTO) 12.8 % (2-12); NEUTROPHILS # (AUTO) 6.1 X10'3 (1.8-7.7); NEUTROPHILS % (AUTO) 71.1 % (42-75); PLATELET COUNT 262 X10'3 (140-440); RED BLOOD COUNT 2.91 X10'6 (4.70-6.10); RED CELL DISTRIBUTION WIDTH 14.1 % (11.5-14.5); WHITE BLOOD COUNT 8.6 X10'3 (4.5-11.0)
[2024-04-01 03:58] LABS: ALANINE AMINOTRANSFERASE 52 U/L (12-78); ALBUMIN 2.1 G/DL (3.4-5.0); ALBUMIN/GLOBULIN RATIO 0.4 (1.1-1.5); ALKALINE PHOSPHATASE 142 IU/L (46-116); ANION GAP 12 (8-16); ASPARTATE AMINO TRANSFERASE 62 U/L (10-37); BILIRUBIN,TOTAL 0.5 MG/DL (0.1-1.0); BLOOD UREA NITROGEN 83 MG/DL (7-18); BUN/CREATININE RATIO 15.4 (10.0-20.0); CALCIUM 8.9 MG/DL (8.5-10.1); CHLORIDE 102 MMOL/L (99-107); CREATININE 5.39 MG/DL (0.60-1.10); GLUCOSE 103 MG/DL (70-104); MAGNESIUM 2.1 MG/DL (1.5-2.4); POTASSIUM 4.2 MMOL/L (3.5-5.1); SODIUM 137 MMOL/L (135-145); TOTAL CARBON DIOXIDE 22.6 MMOL/L (24-32); TOTAL PROTEIN 6.9 G/DL (6.4-8.2); VANCOMYCIN,RANDOM 23.9 ug/mL (20.0-30.0); eCRCL 9 ML/MIN; eGFR 10 ML/MIN
[2024-04-01] MEDS ORDERED: normal saline 1000ml 250 ML IV PRN (06:40)
[2024-04-01] MEDS ORDERED: midazolam 1 mg/ML 2ml injection ONE (11:07)
[2024-04-01] MEDS ORDERED: fentaNYL/PF 50MCG/1 ML 2ML syringe ONE (11:07)
[2024-04-01] MEDS ORDERED: LIDOcaine 1% 30ml preserv. free vial ONE (11:07)
[2024-04-01] MEDS ORDERED: heparin 1,000unit/ml 10ml vial 10 ML ONE (11:07)
[2024-04-01] MEDS ORDERED: iohexol 300 MG/1 ML 50ml polymer ONE (11:25)
[2024-04-01] MEDS ORDERED: diphenhydrAMINE 50 mg/ml inj ONE (11:30)
[2024-04-01] MEDS: heparin 1,000unit/ml 10ml vial 10 ML IV ONE (17:05)
[2024-04-01] MEDS: heparin 1,000 units/ml 10ml inj HE ONE ×2 (17:06)
[2024-04-01] MEDS: EPOETIN ALFA-EPBX 20,000 UNIT/ML 1 ML MDV IV ONE (17:10)
[2024-04-01] MEDS: apixaban 2.5mg tablet PO SCH (19:46)
[2024-04-02 06:00] VITALS: BP 102/61; PULSE 72; RESP 18; TEMP 98.9; O2SAT 97
[2024-04-02 07:48] LABS: BASOPHILS % (AUTO) 0.5 % (0-1); EOSINOPHILS # (AUTO) 0.2 X10'3 (0-0.9); EOSINOPHILS % (AUTO) 2.4 % (0-6); HEMATOCRIT 28.2 % (42.0-52.0); HEMOGLOBIN 9.3 g/dl (14.0-17.9); LYMPHOCYTES # (AUTO) 1.5 X10'3 (1.1-4.8); LYMPHOCYTES % (AUTO) 16.3 % (21-51); MEAN CORPUSCULAR HEMOGLOBIN 31.3 PG (27.0-31.0); MEAN CORPUSCULAR HGB CONC 32.9 g/dL (33.0-36.5); MEAN CORPUSCULAR VOLUME 95.2 FL (78-98); MEAN PLATELET VOLUME 7.9 FL (7.4-10.4); MONOCYTES # (AUTO) 0.9 X10'3 (0-0.9); NEUTROPHILS # (AUTO) 6.5 X10'3 (1.8-7.7); NEUTROPHILS % (AUTO) 70.8 % (42-75); PLATELET COUNT 267 X10'3 (140-440); RED BLOOD COUNT 2.96 X10'6 (4.70-6.10); RED CELL DISTRIBUTION WIDTH 14.2 % (11.5-14.5); WHITE BLOOD COUNT 9.2 X10'3 (4.5-11.0)
[2024-04-02 08:00] VITALS: RESP 18; O2SAT 97
[2024-04-02 08:06] LABS: ALANINE AMINOTRANSFERASE 63 U/L (12-78); ALBUMIN 2.2 G/DL (3.4-5.0); ALBUMIN/GLOBULIN RATIO 0.4 (1.1-1.5); ALKALINE PHOSPHATASE 170 IU/L (46-116); ANION GAP 11 (8-16); ASPARTATE AMINO TRANSFERASE 51 U/L (10-37); BILIRUBIN,TOTAL 0.5 MG/DL (0.1-1.0); BLOOD UREA NITROGEN 40 MG/DL (7-18); BUN/CREATININE RATIO 13.7 (10.0-20.0); CALCIUM 8.8 MG/DL (8.5-10.1); CHLORIDE 105 MMOL/L (99-107); CREATININE 2.92 MG/DL (0.60-1.10); GLUCOSE 135 MG/DL (70-104); MAGNESIUM 1.8 MG/DL (1.5-2.4); POTASSIUM 3.6 MMOL/L (3.5-5.1); SODIUM 140 MMOL/L (135-145); TOTAL CARBON DIOXIDE 23.8 MMOL/L (24-32); TOTAL PROTEIN 7.2 G/DL (6.4-8.2); VANCOMYCIN,RANDOM 25.2 ug/mL (20.0-30.0); eCRCL 16 ML/MIN; eGFR 21 ML/MIN
[2024-04-02 10:44] LABS: HBSAG SCREEN Negative (Negative)
== END 2024-04-02 14:20 | disposition home or self-care (01) | DRG 314 ==
LOC: ER 16:29 → ED HOLD 18:22 → UNDOADMIN 18:22 → ED HOLD 18:26 → ORTHO 4S 20:30
PROVIDERS: ADMIT Internal Medicine; ATTEND Internal Medicine
PROC: 05PYX3Z Removal of Infusion Device from Upper Vein, External Approach (ICD-10-PCS; principal; 2024-03-30)
PROC: 0JHM3XZ Insertion of Tunneled Vascular Access Device into Left Upper Leg Subcutaneous Tissue and Fascia, Percutaneous Approach (ICD-10-PCS; 2024-04-01)
PROC: 02HV33Z Insertion of Infusion Device into Superior Vena Cava, Percutaneous Approach (ICD-10-PCS; 2024-04-01)
PROC: B5181ZA Fluoroscopy of Superior Vena Cava using Low Osmolar Contrast, Guidance (ICD-10-PCS; 2024-04-01)
PROC: B548ZZA Ultrasonography of Superior Vena Cava, Guidance (ICD-10-PCS; 2024-04-01)
PROC: 5A1D70Z Performance of Urinary Filtration, Intermittent, Less than 6 Hours Per Day (ICD-10-PCS; 2024-04-01)
DX: T80.211A Bloodstream infection due to central venous catheter, initial encounter (principal); A41.9 Sepsis, unspecified organism; N18.6 End stage renal disease; E87.1 Hypo-osmolality and hyponatremia; I12.0 Hypertensive chronic kidney disease with stage 5 chronic kidney disease or end stage renal disease; I25.10 Atherosclerotic heart disease of native coronary artery without angina pectoris; E11.22 Type 2 diabetes mellitus with diabetic chronic kidney disease; Z66 Do not resuscitate; I48.91 Unspecified atrial fibrillation; G47.33 Obstructive sleep apnea (adult) (pediatric); G89.29 Other chronic pain; M54.9 Dorsalgia, unspecified; D63.1 Anemia in chronic kidney disease; Y83.8 Other surgical procedures as the cause of abnormal reaction of the patient, or of later complication, without mention of misadventure at the time of the procedure; Y92.89 Other specified places as the place of occurrence of the external cause; Z99.2 Dependence on renal dialysis; Z88.1 Allergy status to other antibiotic agents; Z79.01 Long term (current) use of anticoagulants; Z79.899 Other long term (current) drug therapy; Z83.3 Family history of diabetes mellitus
CPT/HCPCS: 36415; 36558; 36589; 71045; 72170; 73700; 77001; 80048; 80053; 80061; 80202; 81001; 82948; 83605; 83735; 84145; 84443; 85025; 87040; 87070; 87077; 87081; 87186; 87340; 93005; 99285; A4421; A4620; A6212; A6213; A6222; A6250; A6258; A6449; A9270; C1729; C1750; C1769; C1894; E1594; G0257; G0378; J1200; J1644; J1815; J2250; J3010; J3370; J3490; J7040; Q4081; Q9967

== ENCOUNTER 2024-08-27 11:30 | Emergency (ER) | payer MEDICARE, MEDICAID ==
[~2024-08-27] VITALS: Ht 160 cm; Wt 77.2 kg
[~2024-08-27 11:30] MED LIST changes: +APIX2.5T PO; -APIX5TAB3 PO; -LANTUS SQ; -MOME45CR3 TOP; -folic acid PO
[2024-08-27 13:28] LABS: BASOPHILS # (AUTO) 0.1 X10'3 (0-0.2); BASOPHILS % (AUTO) 0.9 % (0-1); EOSINOPHILS # (AUTO) 0.3 X10'3 (0-0.9); EOSINOPHILS % (AUTO) 3.4 % (0-6); HEMATOCRIT 39.6 % (42.0-52.0); LYMPHOCYTES # (AUTO) 1.6 X10'3 (1.1-4.8); LYMPHOCYTES % (AUTO) 16.2 % (21-51); MEAN CORPUSCULAR HEMOGLOBIN 30.6 PG (27.0-31.0); MEAN CORPUSCULAR HGB CONC 32.9 g/dL (33.0-36.5); MEAN PLATELET VOLUME 9.3 FL (7.4-10.4); MONOCYTES # (AUTO) 0.9 X10'3 (0-0.9); MONOCYTES % (AUTO) 8.6 % (2-12); NEUTROPHILS % (AUTO) 70.9 % (42-75); PLATELET COUNT 258 X10'3 (140-440); RED BLOOD COUNT 4.26 X10'6 (4.70-6.10); RED CELL DISTRIBUTION WIDTH 16.7 % (11.5-14.5); WHITE BLOOD COUNT 9.9 X10'3 (4.5-11.0)
[2024-08-27 13:34] LABS: ALANINE AMINOTRANSFERASE 17 U/L (12-78); ALBUMIN 3.7 G/DL (3.4-5.0); ALBUMIN/GLOBULIN RATIO 0.8 (1.1-1.5); ALKALINE PHOSPHATASE 105 IU/L (46-116); ANION GAP 11 (8-16); ASPARTATE AMINO TRANSFERASE 13 U/L (10-37); BILIRUBIN,TOTAL 0.9 MG/DL (0.1-1.0); BLOOD UREA NITROGEN 50 MG/DL (7-18); CALCIUM 10.2 MG/DL (8.5-10.1); CHLORIDE 98 MMOL/L (99-107); CREATININE 3.86 MG/DL (0.60-1.10); GLUCOSE 165 MG/DL (70-104); POTASSIUM 4.6 MMOL/L (3.5-5.1); SODIUM 135 MMOL/L (135-145); TOTAL CARBON DIOXIDE 25.7 MMOL/L (24-32); TOTAL PROTEIN 8.6 G/DL (6.4-8.2); eCRCL 12 ML/MIN; eGFR 15 ML/MIN
[2024-08-28] MEDS ORDERED: LANTUS SQ (04:38)
[2024-08-28 06:46] VITALS: BP 143/77; PULSE 72; RESP 16; TEMP 97.6; O2SAT 98
== END 2024-08-28 06:52 ==
LOC: ER 11:31
DX: T82.49XA Other complication of vascular dialysis catheter, initial encounter (principal); N18.6 End stage renal disease; Z88.0 Allergy status to penicillin; Z88.1 Allergy status to other antibiotic agents; Z99.2 Dependence on renal dialysis; Z95.0 Presence of cardiac pacemaker
CPT/HCPCS: 36415; 80053; 82948; 85025; 99285; A6258; A6402; A6449